=== PATIENT | male | born 1980 | race Caucasian/White ===

== ENCOUNTER 2016-08-08 10:56 | Emergency (ER) | payer OTHER ==
[~2016-08-08] VITALS: Ht 167.6 cm; Wt 62.6 kg
[2016-08-08 14:14] VITALS: BP 110/72
== END 2016-08-08 14:14 | disposition home or self-care (01) ==
LOC: ED 10:56
DX: L89.324 Pressure ulcer of left buttock, stage 4 (principal); L89.314 Pressure ulcer of right buttock, stage 4; M86.68 Other chronic osteomyelitis, other site
CPT/HCPCS: J0295; J3490

== ENCOUNTER 2016-08-11 15:36 | Emergency (ER) | payer OTHER ==
[2016-08-11 21:48] LABS: BASOPHIL % 0.3 % (0-2)
[2016-08-11 21:54] VITALS: BP 122/67
[2016-08-11 21:57] LABS: CALCIUM 8.6 mg/dL (8.5-10.1); CARBON DIOXIDE 27.8 mmol/L (21-32); CHLORIDE SERUM 98 mmol/L (98-107); GFR1 > 60 mL/min; GLUCOSE SERUM 137 mg/dL (74-106); POTASSIUM SERUM 3.1 mmol/L (3.5-5.1); SODIUM SERUM 135 mmol/L (136-145)
[2016-08-11 22:00] LABS: PLATELET COUNT 867 x10^3mcL (130-400); RED CELL DISTRIBUTION WIDTH 15.7 % (11.5-14.5)
== END 2016-08-11 21:54 | disposition home or self-care (01) ==
LOC: ED 15:36
PROVIDERS: Emergency Medicine
DX: L89.314 Pressure ulcer of right buttock, stage 4 (principal)
CPT/HCPCS: 83880; J0290

== ENCOUNTER 2017-02-09 17:48 | Emergency (ER) | payer MEDICAID ==
[2017-02-09 22:16] LABS: BASOPHIL % 0.3 % (0-2)
[2017-02-09 22:19] LABS: CALCIUM 8.6 mg/dL (8.5-10.1); CARBON DIOXIDE 30.4 mmol/L (21-32); CHLORIDE SERUM 102 mmol/L (98-107); CREATININE SERUM 1.2 mg/dL (0.7-1.3); GFR1 > 60 mL/min; GLUCOSE SERUM 128 mg/dL (74-106); POTASSIUM SERUM 3.5 mmol/L (3.5-5.1); SODIUM SERUM 136 mmol/L (136-145)
[2017-02-09 22:20] LABS: PLATELET COUNT 511 x10^3mcL (130-400); RED CELL DISTRIBUTION WIDTH 19.5 % (11.5-14.5)
[2017-02-09 22:24] LABS: ALKALINE PHOSPHATASE 150 U/L (46-116); ALT/SGPT 46 U/L (16-63); AST/SGOT 36 U/L (15-37); BILIRUBIN TOTAL 0.3 mg/dL (0.20-1.00); TOTAL PROTEIN, SERUM 7.8 g/dL (6.4-8.2)
[2017-02-09 22:26] LABS: ALBUMIN 1.9 g/dL (3.4-5.0)
[2017-02-09 23:13] VITALS: BP 117/66
== END 2017-02-09 23:13 | disposition home or self-care (01) ==
LOC: ED 17:48
PROVIDERS: Emergency Medicine
DX: M54.5 Low back pain (principal); L89.159 Pressure ulcer of sacral region, unspecified stage; G82.20 Paraplegia, unspecified
CPT/HCPCS: 36415

== ENCOUNTER 2017-09-09 18:05 | Inpatient (IN) | payer OTHER ==
[~2017-09-09] VITALS: Ht 170.2 cm; Wt 64.8 kg
[2017-09-09 18:23] VITALS: Ht 170.2 cm; Wt 64.8 kg
[2017-09-09 21:16] LABS: BASOPHIL % 0.3 % (0-2); PLATELET COUNT 390 x10^3mcL (130-400)
[2017-09-09 21:18] LABS: RED CELL DISTRIBUTION WIDTH 15.6 % (11.5-14.5)
[2017-09-09 21:20] LABS: CALCIUM 7.3 mg/dL (8.5-10.1); CARBON DIOXIDE 26.2 mmol/L (21-32); CHLORIDE SERUM 102 mmol/L (98-107); CREATININE SERUM 0.8 mg/dL (0.7-1.3); GFR1 > 60 mL/min; GLUCOSE SERUM 101 mg/dL (74-106); POTASSIUM SERUM 3.4 mmol/L (3.5-5.1); SODIUM SERUM 136 mmol/L (136-145)
[2017-09-09 21:23] LABS: ALKALINE PHOSPHATASE 146 U/L (46-116); ALT/SGPT 34 U/L (16-63); AST/SGOT 23 U/L (15-37); BILIRUBIN TOTAL 0.5 mg/dL (0.20-1.00); TOTAL PROTEIN, SERUM 6.9 g/dL (6.4-8.2)
[2017-09-09 22:13] LABS: microscopic required? YES; urine erythrocyte 1+ (NEGATIVE)
[2017-09-09 23:07] VITALS: BP 86/49
[2017-09-10] VITALS (11 sets, daily range): BP systolic 68–112; BP diastolic 38–71
[2017-09-10 00:32] LABS: CHOLESTEROL/HDL RATIO 7.5
[2017-09-10 00:33] LABS: FREE T4 0.89 ng/dL (0.76-1.46)
[2017-09-10 00:35] LABS: FREE THYROXINE INDEX 1.4 ug/dL (1.4-4.5); T4(THYROXINE) 3.8 ug/dL (4.7-13.3)
[2017-09-10 00:47] LABS: T3 TOTAL 0.78 ng/mL
[2017-09-10 04:14] LABS: AMPHETAMINE QUAL UR POSITIVE (See below)
[2017-09-10 05:22] LABS: BASOPHIL % 0.4 % (0-2); PLATELET COUNT 397 x10^3mcL (130-400)
[2017-09-10 05:23] LABS: RED CELL DISTRIBUTION WIDTH 15.9 % (11.5-14.5)
[2017-09-10 05:42] LABS: CALCIUM 7.6 mg/dL (8.5-10.1); CARBON DIOXIDE 24.4 mmol/L (21-32); CHLORIDE SERUM 107 mmol/L (98-107); CREATININE SERUM 0.7 mg/dL (0.7-1.3); GFR1 > 60 mL/min; GLUCOSE SERUM 111 mg/dL (74-106); MAGNESIUM 2.3 mg/dL (1.8-2.4); POTASSIUM SERUM 3.6 mmol/L (3.5-5.1); SODIUM SERUM 142 mmol/L (136-145)
[2017-09-11 05:01] LABS: BASOPHIL % 0.5 % (0-2); PLATELET COUNT 339 x10^3mcL (130-400)
[2017-09-11 05:04] LABS: RED CELL DISTRIBUTION WIDTH 16.1 % (11.5-14.5)
[2017-09-11 05:21] LABS: CALCIUM 7.9 mg/dL (8.5-10.1); CHLORIDE SERUM 110 mmol/L (98-107); CREATININE SERUM 0.6 mg/dL (0.7-1.3); GFR1 > 60 mL/min; GLUCOSE SERUM 190 mg/dL (74-106); MAGNESIUM 2.2 mg/dL (1.8-2.4); PHOSPHOROUS 2.5 mg/dL (2.5-4.9); POTASSIUM SERUM 3.5 mmol/L (3.5-5.1); SODIUM SERUM 144 mmol/L (136-145)
[2017-09-11 07:58] VITALS: BP 113/75
[2017-09-11 12:17] VITALS: BP 114/63
[2017-09-11 17:40] VITALS: BP 101/52
[2017-09-11 20:53] VITALS: BP 89/68
[2017-09-12 05:24] VITALS: BP 100/69
[2017-09-12 06:39] LABS: BASOPHIL % 0.4 % (0-2)
[2017-09-12 06:58] LABS: CALCIUM 7.8 mg/dL (8.5-10.1); CARBON DIOXIDE 25.9 mmol/L (21-32); CHLORIDE SERUM 110 mmol/L (98-107); CREATININE SERUM 0.8 mg/dL (0.7-1.3); GFR1 > 60 mL/min; GLUCOSE SERUM 181 mg/dL (74-106); POTASSIUM SERUM 3.5 mmol/L (3.5-5.1); SODIUM SERUM 144 mmol/L (136-145)
[2017-09-12 07:38] LABS: PLATELET COUNT 434 x10^3mcL (130-400); RED CELL DISTRIBUTION WIDTH 16.4 % (11.5-14.5)
[2017-09-12 09:21] VITALS: BP 100/60
[2017-09-12] MEDS ORDERED: AUGMENTIN 875-1 EACH PO (13:29)
[2017-09-12] MEDS ORDERED: LEVAQUIN750 MG PO (13:29)
[2017-09-12 13:35] VITALS: BP 105/59
[2017-09-12 13:39] VITALS: BP 105/59
== END 2017-09-12 14:44 | disposition home health service (06) | DRG 720 ==
LOC: ED 18:05 → DU 21:57 → IC 21:57 → DU 22:30 → IC 09-10 02:07 → DU 09-11 17:36
PROVIDERS: Emergency Medicine; Family Medicine; Surgery
PROC: 0JBM0ZZ Excision of Left Upper Leg Subcutaneous Tissue and Fascia, Open Approach (ICD-10-PCS; principal; 2017-09-11 09:00)
DX: A41.9 Sepsis, unspecified organism (principal); N17.0 Acute kidney failure with tubular necrosis; R65.21 Severe sepsis with septic shock; E43 Unspecified severe protein-calorie malnutrition; L89.229 Pressure ulcer of left hip, unspecified stage; G82.21 Paraplegia, complete; D64.9 Anemia, unspecified; B35.1 Tinea unguium; N39.0 Urinary tract infection, site not specified; R31.9 Hematuria, unspecified; R80.9 Proteinuria, unspecified; F17.210 Nicotine dependence, cigarettes, uncomplicated; M62.50 Muscle wasting and atrophy, not elsewhere classified, unspecified site; B35.3 Tinea pedis; L98.429 Non-pressure chronic ulcer of back with unspecified severity; E87.6 Hypokalemia; Z93.3 Colostomy status; Z68.20 Body mass index [BMI] 20.0-20.9, adult; Z99.3 Dependence on wheelchair
CPT/HCPCS: 83880; 84439; J0696; J1720; J1885; J1956; J2250; J2543; J3010; J3475; J3490; J7030; J7040; Q0092

== ENCOUNTER 2018-02-24 22:20 | Inpatient (IN) | payer OTHER ==
[~2018-02-24] VITALS: Ht 167.6 cm; Wt 57.2 kg
[~2018-02-24 22:20] MED LIST: AUGMENTIN 875-1 EACH PO; LEVAQUIN750 MG PO
[2018-02-24 23:16] LABS: CALCIUM 7.9 mg/dL (8.5-10.1); CARBON DIOXIDE 22.1 mmol/L (21-32); CHLORIDE SERUM 98 mmol/L (98-107); CREATININE SERUM 1.1 mg/dL (0.7-1.3); GFR1 > 60 mL/min; GLUCOSE SERUM 95 mg/dL (74-106); POTASSIUM SERUM 3.9 mmol/L (3.5-5.1); SODIUM SERUM 132 mmol/L (136-145)
[2018-02-24 23:20] LABS: ALKALINE PHOSPHATASE 332 U/L (46-116); ALT/SGPT 30 U/L (16-63); AST/SGOT 27 U/L (15-37); TOTAL PROTEIN, SERUM 7.3 g/dL (6.4-8.2)
[2018-02-24 23:22] LABS: ALBUMIN 1.8 g/dL (3.4-5.0)
[2018-02-24 23:27] LABS: BASOPHIL % 0 % (0-2); PLATELET COUNT 411 x10^3mcL (130-400); RED CELL DISTRIBUTION WIDTH 18.1 % (11.5-14.5)
[2018-02-25 01:55] LABS: T3 TOTAL 0.58 ng/mL
[2018-02-25 02:03] LABS: FREE THYROXINE INDEX 1.4 ug/dL (1.4-4.5); T4(THYROXINE) 3.3 ug/dL (4.7-13.3)
[2018-02-25 02:14] LABS: CHOLESTEROL/HDL RATIO 7.2; MAGNESIUM 1.1 mg/dL (1.8-2.4); PHOSPHOROUS 1.4 mg/dL (2.5-4.9)
[2018-02-25 04:39] VITALS: BP 72/43
[2018-02-25 05:02] LABS: CALCIUM 7.5 mg/dL (8.5-10.1); CARBON DIOXIDE 22.1 mmol/L (21-32); CHLORIDE SERUM 104 mmol/L (98-107); CREATININE SERUM 1.3 mg/dL (0.7-1.3); GFR1 > 60 mL/min; GLUCOSE SERUM 106 mg/dL (74-106); MAGNESIUM 1.3 mg/dL (1.8-2.4); PHOSPHOROUS 2.1 mg/dL (2.5-4.9); POTASSIUM SERUM 3.6 mmol/L (3.5-5.1); SODIUM SERUM 136 mmol/L (136-145)
[2018-02-25 05:33] LABS: PLATELET COUNT 473 x10^3mcL (130-400)
[2018-02-25 05:38] VITALS: BP 82/50
[2018-02-25 05:48] LABS: BAND NEUTROPHIL 17 % (0-10); BASOPHIL 0 % (0-2); MONOCYTE 1 % (0-7); SEGMENTED NEUTROPHILS 81 % (37-75)
[2018-02-25 05:50] LABS: rbc morphology (normal/abnorm) NORMAL (NORMAL)
[2018-02-25 05:51] LABS: PLATELET MORPHOLOGY PLATELETS INCREASED
[2018-02-25 08:00] VITALS: BP 110/56
[2018-02-25 16:00] VITALS: BP 77/33
[2018-02-25 19:23] VITALS: BP 84/38
[2018-02-26] VITALS (7 sets, daily range): BP systolic 79–133; BP diastolic 43–91
[2018-02-26 05:34] LABS: PLATELET COUNT 420 x10^3mcL (130-400); RED CELL DISTRIBUTION WIDTH 18.9 % (11.5-14.5)
[2018-02-26 05:48] LABS: CALCIUM 7.5 mg/dL (8.5-10.1); CHLORIDE SERUM 109 mmol/L (98-107); CREATININE SERUM 0.7 mg/dL (0.7-1.3); GFR1 > 60 mL/min; GLUCOSE SERUM 99 mg/dL (74-106); MAGNESIUM 2.2 mg/dL (1.8-2.4); PHOSPHOROUS 2.7 mg/dL (2.5-4.9); POTASSIUM SERUM 4.1 mmol/L (3.5-5.1); SODIUM SERUM 140 mmol/L (136-145)
[2018-02-26 05:52] LABS: BAND NEUTROPHIL 2 % (0-10); MONOCYTE 5 % (0-7); SEGMENTED NEUTROPHILS 86 % (37-75)
[2018-02-26 05:59] LABS: PLATELET MORPHOLOGY PLATELETS NORMAL; rbc morphology (normal/abnorm) ABNORMAL (NORMAL)
[2018-02-26 10:38] LABS: UA SPECIFIC GRAVITY 1.025 (1.005-1.035); microscopic required? YES; urine erythrocyte 3+ (NEGATIVE)
[2018-02-26 11:10] LABS: AMPHETAMINE QUAL UR POSITIVE (See below)
[2018-02-27 00:18] VITALS: Ht 167.6 cm; Wt 57.2 kg
[2018-02-27 05:51] VITALS: BP 93/49
[2018-02-27 06:20] LABS: CALCIUM 7.5 mg/dL (8.5-10.1); CARBON DIOXIDE 26.2 mmol/L (21-32); CHLORIDE SERUM 111 mmol/L (98-107); CREATININE SERUM 0.7 mg/dL (0.7-1.3); GFR1 > 60 mL/min; GLUCOSE SERUM 107 mg/dL (74-106); POTASSIUM SERUM 3.8 mmol/L (3.5-5.1); SODIUM SERUM 143 mmol/L (136-145)
[2018-02-27 06:22] LABS: BASOPHIL % 0.5 % (0-2)
[2018-02-27 06:45] LABS: PLATELET COUNT 481 x10^3mcL (130-400); RED CELL DISTRIBUTION WIDTH 18.5 % (11.5-14.5)
[2018-02-27 08:06] VITALS: BP 89/57
[2018-02-27 13:08] VITALS: BP 93/53
[2018-02-27 17:19] VITALS: BP 94/52
[2018-02-27 21:16] VITALS: BP 95/63
[2018-02-28 06:24] VITALS: BP 114/71
[2018-02-28 06:33] LABS: BASOPHIL % 0.4 % (0-2)
[2018-02-28 07:13] LABS: PLATELET COUNT 429 x10^3mcL (130-400); RED CELL DISTRIBUTION WIDTH 19.2 % (11.5-14.5)
[2018-02-28 07:25] LABS: CALCIUM 7.9 mg/dL (8.5-10.1); CARBON DIOXIDE 26.3 mmol/L (21-32); CHLORIDE SERUM 110 mmol/L (98-107); CREATININE SERUM 0.7 mg/dL (0.7-1.3); GFR1 > 60 mL/min; GLUCOSE SERUM 91 mg/dL (74-106); POTASSIUM SERUM 3.8 mmol/L (3.5-5.1); SODIUM SERUM 143 mmol/L (136-145)
[2018-02-28 10:11] VITALS: BP 98/57
[2018-02-28 13:00] VITALS: BP 116/64
[2018-02-28 18:35] VITALS: BP 105/65
[2018-02-28 20:50] VITALS: BP 108/64
[2018-03-01 05:32] VITALS: BP 95/57
[2018-03-01 06:33] LABS: BASOPHIL % 0.6 % (0-2)
[2018-03-01 06:47] LABS: PLATELET COUNT 465 x10^3mcL (130-400); RED CELL DISTRIBUTION WIDTH 18.3 % (11.5-14.5)
[2018-03-01 07:09] LABS: CALCIUM 7.9 mg/dL (8.5-10.1); CARBON DIOXIDE 27.2 mmol/L (21-32); CHLORIDE SERUM 107 mmol/L (98-107); CREATININE SERUM 0.8 mg/dL (0.7-1.3); GFR1 > 60 mL/min; GLUCOSE SERUM 83 mg/dL (74-106); POTASSIUM SERUM 3.8 mmol/L (3.5-5.1); SODIUM SERUM 139 mmol/L (136-145)
[2018-03-01 09:31] VITALS: BP 129/73
[2018-03-01 13:16] VITALS: BP 97/49
[2018-03-01 16:53] VITALS: BP 97/53
[2018-03-01 21:25] VITALS: BP 103/62
[2018-03-02 06:13] VITALS: BP 98/58
[2018-03-02 06:35] LABS: BASOPHIL % 0.7 % (0-2)
[2018-03-02 06:57] LABS: CARBON DIOXIDE 28.4 mmol/L (21-32); CHLORIDE SERUM 108 mmol/L (98-107); CREATININE SERUM 1.4 mg/dL (0.7-1.3); GFR1 > 60 mL/min; GLUCOSE SERUM 94 mg/dL (74-106); POTASSIUM SERUM 4.1 mmol/L (3.5-5.1); SODIUM SERUM 142 mmol/L (136-145)
[2018-03-02 08:02] LABS: PLATELET COUNT 561 x10^3mcL (130-400); RED CELL DISTRIBUTION WIDTH 18.2 % (11.5-14.5)
[2018-03-02 09:53] VITALS: BP 89/54
[2018-03-02 12:14] VITALS: BP 99/57
[2018-03-02 16:42] VITALS: BP 92/50
[2018-03-02 21:08] VITALS: BP 95/46
[2018-03-03 05:22] VITALS: BP 96/58
[2018-03-03 06:15] LABS: CALCIUM 8.2 mg/dL (8.5-10.1); CARBON DIOXIDE 26.2 mmol/L (21-32); CHLORIDE SERUM 108 mmol/L (98-107); CREATININE SERUM 0.7 mg/dL (0.7-1.3); GFR1 > 60 mL/min; GLUCOSE SERUM 83 mg/dL (74-106); SODIUM SERUM 141 mmol/L (136-145)
[2018-03-03 07:19] LABS: BASOPHIL % 0.7 % (0-2)
[2018-03-03 07:20] LABS: PLATELET COUNT 497 x10^3mcL (130-400); RED CELL DISTRIBUTION WIDTH 18.2 % (11.5-14.5)
[2018-03-03 09:07] VITALS: BP 94/58
[2018-03-03 13:03] VITALS: BP 89/51
[2018-03-03 16:35] VITALS: BP 107/55
[2018-03-03 19:45] VITALS: BP 94/53
[2018-03-04 05:38] VITALS: BP 88/61
[2018-03-04 06:25] LABS: BASOPHIL % 0.5 % (0-2)
[2018-03-04 06:47] LABS: CALCIUM 7.9 mg/dL (8.5-10.1); CARBON DIOXIDE 27.6 mmol/L (21-32); CHLORIDE SERUM 106 mmol/L (98-107); CREATININE SERUM 0.7 mg/dL (0.7-1.3); GFR1 > 60 mL/min; GLUCOSE SERUM 95 mg/dL (74-106); POTASSIUM SERUM 3.5 mmol/L (3.5-5.1); SODIUM SERUM 137 mmol/L (136-145)
[2018-03-04 07:08] LABS: PLATELET COUNT 568 x10^3mcL (130-400); RED CELL DISTRIBUTION WIDTH 18.6 % (11.5-14.5)
[2018-03-04 08:27] VITALS: BP 96/40
== END 2018-03-04 10:30 | disposition left against medical advice (07) | DRG 720 ==
LOC: ED 22:20 → IC 02-25 01:01 → MU 02-25 01:01 → IC 02-25 02:09 → DU 02-26 22:40 → MU 03-03 17:38
PROVIDERS: Emergency Medicine; Family Medicine; ADMIT Internal Medicine
DX: A41.89 Other specified sepsis (principal); R65.21 Severe sepsis with septic shock; E43 Unspecified severe protein-calorie malnutrition; L89.154 Pressure ulcer of sacral region, stage 4; D68.69 Other thrombophilia; E11.65 Type 2 diabetes mellitus with hyperglycemia; E83.39 Other disorders of phosphorus metabolism; D89.9 Disorder involving the immune mechanism, unspecified; L89.224 Pressure ulcer of left hip, stage 4; E83.42 Hypomagnesemia; G82.21 Paraplegia, complete; N39.0 Urinary tract infection, site not specified; R31.9 Hematuria, unspecified; E83.51 Hypocalcemia; J44.9 Chronic obstructive pulmonary disease, unspecified; Z53.21 Procedure and treatment not carried out due to patient leaving prior to being seen by health care provider; B96.4 Proteus (mirabilis) (morganii) as the cause of diseases classified elsewhere; B95.61 Methicillin susceptible Staphylococcus aureus infection as the cause of diseases classified elsewhere; F12.10 Cannabis abuse, uncomplicated; F15.10 Other stimulant abuse, uncomplicated; E87.1 Hypo-osmolality and hyponatremia; F17.210 Nicotine dependence, cigarettes, uncomplicated; Z93.3 Colostomy status; Z99.3 Dependence on wheelchair; Z68.20 Body mass index [BMI] 20.0-20.9, adult; Z22.322 Carrier or suspected carrier of Methicillin resistant Staphylococcus aureus; Z23 Encounter for immunization; Z79.899 Other long term (current) drug therapy
CPT/HCPCS: 82962; 83880; 84439; 90658; J0696; J0713; J1335; J1956; J2405; J2543; J3370; J3475; J7030; J7050; J7060; Q0092; Q9967

== ENCOUNTER 2018-07-17 00:33 | Inpatient (IN) | payer OTHER ==
[~2018-07-17] VITALS: Ht 167.6 cm; Wt 61.7 kg
[2018-07-17 00:39] VITALS: Ht 167.6 cm; Wt 61.7 kg
--- NOTE | 2018-07-17 00:59 | NUR ---
PT C/O HAVING BOADY PAIN AND NIPPLE PAIN SINCE THE June. PT WAS ADMIT TO [facility] AND DISCHARGED . PT STS THAT HE HAS BEEN HAVING A TEMP OF 102. PT GIVEN VANCO FROM LLU. PT HAS BEEN HAVING NAUSEA AND VOMITING. DIARRHEA FOR ONE WEEK. PT HAS STAGE 4 PRESSURE ULCER IN RIGHT BUTTOCKS FOR 6-8 MONTHS. PT HAS A CATHETER LEG BACK. PT STS THAT HIS URINE SEEMS DARKER THAN NORMAL. PT STS WOUNDS HAVE BEEN CHECK AND DRAINING MORE THAN USUAL. DR. KAMINSKI AT BEDSIDE FOR MSE. VSS. TEMP NOTED. WILL CONTINUE TO MONITOR.
--- NOTE | 2018-07-17 01:26 | NUR ---
EKG IN PROGRESS.
[2018-07-17 01:29] LABS: RED CELL DISTRIBUTION WIDTH 18.5 % (11.5-14.5)
[2018-07-17 01:31] LABS: PLATELET COUNT 791 x10^3mcL (130-400)
[2018-07-17 01:41] LABS: MONOCYTE 3 % (0-7); SEGMENTED NEUTROPHILS 87 % (37-75)
[2018-07-17 01:44] LABS: CALCIUM 7.6 mg/dL (8.5-10.1); CARBON DIOXIDE 25.6 mmol/L (21-32); CHLORIDE SERUM 95 mmol/L (98-107); GFR1 > 60 mL/min; GLUCOSE SERUM 131 mg/dL (74-106); PLATELET MORPHOLOGY PLATELETS INCREASED; POTASSIUM SERUM 4.5 mmol/L (3.5-5.1); SODIUM SERUM 130 mmol/L (136-145); rbc morphology (normal/abnorm) ABNORMAL (NORMAL); target cell (codocyte) 1+; tear drop cell (dacryocyte) 1+
[2018-07-17 02:28] LABS: ALKALINE PHOSPHATASE 409 U/L (46-116); ALT/SGPT 62 U/L (16-63); AST/SGOT 60 U/L (15-37); BILIRUBIN TOTAL 0.5 mg/dL (0.20-1.00); TOTAL PROTEIN, SERUM 6.3 g/dL (6.4-8.2)
[2018-07-17 02:33] LABS: ALBUMIN 1.4 g/dL (3.4-5.0)
[2018-07-17 03:05] LABS: microscopic required? YES; urine erythrocyte TRACE (NEGATIVE)
--- NOTE | 2018-07-17 03:09 | NUR ---
PT TURNED TO RIGHT SIDE TO NOT PUT PRESSURE TO LEFT THIGH WOUND. PT IN POSITION OF COMFORT. RESP E/U. VSS. WILL CONTINUE TO MONITOR. PT IS ALERT AND ORIENTED, SPEAKING IN CLEAR AND FULL SENTENCES.
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
[2018-07-17 04:31] LABS: MAGNESIUM 1.8 mg/dL (1.8-2.4)
--- NOTE | 2018-07-17 04:33 | NUR ---
WEED CONTAINER IN PT WHEELCHAIR PD NOTIFIED AND STS THAT DAY SHIFT PD WILL COME TO TOWBOAT PILOT METH CONTAINER IN RADIO ROOM. PT WAS WILLING TO GIVE DRUGS TO TRASH THEM. CONTANIER HAD "METH AND COCAINE" PER PT.
--- NOTE | 2018-07-17 04:35 | NUR ---
RECEIVED PT FROM ED. PT AOX4. DENIES FAYE/DIZZINESS. MED SURG PT. DENIES CP/PRESSURE. DENIES SOB/DIFFICULTY BREATHING, ON RA. COLOSTOMY NOTED TO LLQ, NO OUTPUT NOTED. CROCKER CATH IN PLACE, STRAW COLORED URINE NOTED. PARAPLEGIC, USES WHEEL CHAIR. OPEN WOUND TO R/L BUTTOCKS. IV TO LAC, LFA, INTACT AND PATENT. BED IN LOWEST POSITION. CALL LIGHT WITHIN REACH. WILL CONTINUE TO MONITOR.
[2018-07-17 05:16] VITALS: BP 91/44
--- NOTE | 2018-07-17 05:55 | NUR ---
PT BP 91/[address] ALLRED MADE AWARE.
[2018-07-17 07:07] LABS: CALCIUM 7.6 mg/dL (8.5-10.1); CHLORIDE SERUM 102 mmol/L (98-107); CREATININE SERUM 0.8 mg/dL (0.7-1.3); GFR1 > 60 mL/min; GLUCOSE SERUM 115 mg/dL (74-106); POTASSIUM SERUM 3.2 mmol/L (3.5-5.1); SODIUM SERUM 136 mmol/L (136-145)
--- NOTE | 2018-07-17 07:10 | NUR ---
RECIEVED PT FROM ENCEPHALOGRAPHER NURSE. PT IN BED SLEEPING, AROUSABLE, RESP EVEN AND UNLABORED ON RA. NO ACUTE DISTRESS NOTED. IV TO LFA AND LAC W/ NO ERYTHEMA OR EDEMA, PATENT AND INTACT. CROCKER IN PLACE DRAINING STRAW COLORED URINE TO GRAVITY. COLOSTOMY TO LLQ W/ NO OUTPUT AT THIS TIME. BED IN LOWEST POSITION AND CALL LIGHT WITHIN REACH. WILL CONTINUE TO MONITOR.
[2018-07-17 07:52] LABS: PLATELET COUNT 636 x10^3mcL (130-400); RED CELL DISTRIBUTION WIDTH 18.3 % (11.5-14.5)
--- NOTE | 2018-07-17 08:52 | NUR ---
TANNER CARTOON DESIGNER KARL#[id number] CAME TO PICKUP THE SMALL BLK CONTAINER.
[2018-07-17 08:58] LABS: MONOCYTE 4 % (0-7); SEGMENTED NEUTROPHILS 87 % (37-75)
[2018-07-17 08:59] LABS: rbc morphology (normal/abnorm) ABNORMAL (NORMAL); target cell (codocyte) 1+
[2018-07-17 09:00] VITALS: BP 80/50
[2018-07-17 09:00] LABS: PLATELET MORPHOLOGY PLATELETS INCREASED; tear drop cell (dacryocyte) 1+
--- NOTE | 2018-07-17 12:30 | NUR ---
PT IN BED HAVING LUNCH. AOX4. NO ACUTE DISTRESS NOTED. DENIES PAIN AT THIS TIME. BED IN LOWEST POSITION AND CALL LIGHT WITHIN REACH. WILL CONTINUE TO MONITOR.
--- NOTE | 2018-07-17 16:40 | NUR ---
WOUND OBSERVED AT THIS TIME. PRESSURE ULCER TO R BUTTOCKS W/ NO DRAINAGE OR DISCHARGE, SURROUNDING TISSUE PINK. PRESSURE ULCER TO L BUTTOCKS W/ PACKING IN PLACE, MODERATE AMOUNT OF SEROUS SANGUINOUS FLUID NOTED. PT DENIES PAIN TO BOTH SITES. WOUND CARE DONE. OPTIFOAM IN PLACE SECURED BY STRATSORB DRESSING. WILL CONTINUE TO MONITOR.
[2018-07-17 17:31] LABS: AMPHETAMINE QUAL UR POSITIVE (See below)
[2018-07-17 17:51] VITALS: BP 157/98; BP 75/43
--- NOTE | 2018-07-17 19:10 | NUR ---
RECEIVED PT FROM PREVIOUS SHIFT NURSE. PT AOX4. DENIES FAYE/DIZZINESS. MED SURG PT. DENIES CP/PRESSURE. DENIES SOB/DIFFICULTY BREATHING, ON RA. COLOSTOMY TO LLQ. GEN WEAKNESS. WHEELCHAIR AT BEDSIDE. R. BUTTOCKS WOUND DSG CDI. L. BUTTOCKS WOUND DSG CDI. IV TO LAC, LFA INTACT AND PATENT. BED IN LOWEST POSITION. CALL LIGHT WITHIN REACH. WILL CONTINUE TO MONITOR.
--- NOTE | 2018-07-17 19:23 | NUR ---
PT DRESSING CAME OFF DURING REPOSTIONING. WOUND CARE DONE, OPTIFOAM AND SERATOFOAM DRESSING APPLIED AND SECURED. PT AOX4. RESP EVENA DN UN LABORED ON RA. IV SITE W/ NO SIGNS OF INFILTRATION, IVF INUFSING WELL. COLOSTOMY TO LLQ CLEAN AND INTACT. CROCKER DRAINING STRAW COLORED URINE TO GRAVITY. BED IN LOW AND CALL LIGHT WITHIN REACH. WILL ENDORSE TO ONCOMING NURSE.
[2018-07-17 21:09] VITALS: BP 94/47
--- NOTE | 2018-07-17 22:09 | NUR ---
WOUND VAC APPLIED TO L. HIP/BUTTOCK WOUND AT 125 mmHg. DRAINING SEROUS DRAINAGE.
--- NOTE | 2018-07-18 01:45 | NUR ---
PT RESTING IN BED. RR EVEN AND UNLABORED. NO ACUTE DISTRESS NOTED. CALL LIGHT WITHIN REACH. BED IN LOWEST POSITION. WILL CONTINUE TO MONITOR.
[2018-07-18 04:25] VITALS: BP 83/44
[2018-07-18 06:09] LABS: BASOPHIL % 0.1 % (0-2)
[2018-07-18 06:56] LABS: CALCIUM 7.5 mg/dL (8.5-10.1); CARBON DIOXIDE 21.5 mmol/L (21-32); CHLORIDE SERUM 106 mmol/L (98-107); CREATININE SERUM 0.6 mg/dL (0.7-1.3); GFR1 > 60 mL/min; GLUCOSE SERUM 117 mg/dL (74-106); MAGNESIUM 1.6 mg/dL (1.8-2.4); PHOSPHOROUS 2.8 mg/dL (2.5-4.9); POTASSIUM SERUM 3.9 mmol/L (3.5-5.1); SODIUM SERUM 138 mmol/L (136-145)
--- NOTE | 2018-07-18 07:07 | NUR ---
RECEIVED PT FROM MANAGING MEMBER NURSE. PT RESTING IN BED, AOX4, RESP EVEN AND UNLABORED ON RA. DENIES PAIN AT THIS TIME. IV TO LAC AND LFA W/ NO ERTHEMA OR EDEMA, IVF INFUSING WELL. DRESSING TO LEFT AND RIGHT BUTTOCKS CDI. WOUND VAC IN PLACE DRAINING SEROUS DRAINAGE. COLOSTOMY TO LLQ CLEAN AND INTACT. CROCKER IN PLACE DRAINING STRAW COLORED URINE. BED IN LOWEST POSITION AND CALL LIGHT WITHIN REACH. WILL CONTINUE TO MONITOR.
[2018-07-18 07:10] LABS: RED CELL DISTRIBUTION WIDTH 18.3 % (11.5-14.5)
[2018-07-18 07:14] LABS: PLATELET COUNT 543 x10^3mcL (130-400)
[2018-07-18 09:30] VITALS: BP 86/45
--- NOTE | 2018-07-18 11:10 | NUR ---
LEAK TO WOUND VAC NOTED. DRESSING REINFORCED, SUCTION MAINTAINED AT 125 MMHG. DRESSING CDI. WILL CONTINUE TO MONITOR.
--- NOTE | 2018-07-18 12:11 | NUR ---
PT SLEEPING IN BED, AROUSABLE, RESP EVEN AND UNLABORED ON RA. NO ACUTE DSTRESS NOTED. BED IN LOWEST POSITION AND CALL LIGHT WITHIN REACH. WILL CONTINUE TO MONITOR.
[2018-07-18 12:40] LABS: IRON 9 ug/dL (65-170); TOTAL IRON BINDING CAPACITY 84 ug/dL (250-450)
--- NOTE | 2018-07-18 18:10 | NUR ---
WOUND CARE DONE. OPTIFOAM AND STRATASORB DRESSING IN PLACE. WOUND VAC TO LEFT BUTTOCKS DRAINING SEROUS FLUID AT 125 MMHG, DRESSING CDI. PT AOX4, RESP EVEN AND UNLABORED ON RA. DENIES PAIN. COLOSTOMY BAG CLEAN AND INTACT. CROCKER IN PLACE DRAINING STRAW COLORED URINE. BED IN LOWEST POSITION AND CALL LIGHT WITHIN REACH. WILL ENDORSE TO ONCOMING NURSE.
[2018-07-18 18:30] VITALS: BP 71/35
--- NOTE | 2018-07-18 19:10 | NUR ---
RECEIVED PT FROM PREVIOUS SHIFT NURSE. PT AOX4. DENIES FAYE/DIZZINESS. MED SURG PT. DENIES CP/PRESSURE. DENIES SOB/DIFFICULTY BREATHING, ON RA. CROCKER CATH IN PLACE, YELLOW OUTPUT NOTED. R. BUTTOCK WOUND DSG CDI, L. BUTTOCK WOUND WITH WOUND VAC IN PLACE. IV TO LFA, LAC INTACT AND PATENT. BED IN LOWEST POSITION. CALL LIGHT WITHIN REACH. WILL CONTINUE TO MONITOR.
[2018-07-18 19:24] VITALS: BP 78/41
--- NOTE | 2018-07-18 21:45 | NUR ---
TELE #16 PLACED ON PT, READING NSR, HR 87.
--- NOTE | 2018-07-18 22:51 | NUR ---
BOLUS COMPLETE. BP 77/45 MAP 43. PT ASYMPTOMATIC. STATES HE DOES NOT WANT HIS BP CHECKED ANYMORE. DR. SMART NOTIFIED. WILL CONTINUE TO MONITOR.
--- NOTE | 2018-07-19 03:30 | NUR ---
PT RESTING IN BED. RR EVEN AND UNLABORED. IN NO ACUTE DISTRESS. BED IN LOWEST POSITION. CALL LIGHT WITHIN REACH. WILL CONTINUE TO MONITOR.
[2018-07-19 04:28] VITALS: BP 89/50
--- NOTE | 2018-07-19 06:32 | NUR ---
50 ML OUTPUT FROM WOUND VAC.
[2018-07-19 06:51] LABS: BASOPHIL % 0.3 % (0-2)
[2018-07-19 07:07] LABS: CALCIUM 7.3 mg/dL (8.5-10.1); CARBON DIOXIDE 28.6 mmol/L (21-32); CHLORIDE SERUM 109 mmol/L (98-107); CREATININE SERUM 0.7 mg/dL (0.7-1.3); GFR1 > 60 mL/min; GLUCOSE SERUM 150 mg/dL (74-106); MAGNESIUM 1.8 mg/dL (1.8-2.4); PHOSPHOROUS 2.9 mg/dL (2.5-4.9); POTASSIUM SERUM 3.1 mmol/L (3.5-5.1); SODIUM SERUM 143 mmol/L (136-145)
--- NOTE | 2018-07-19 07:30 | NUR ---
AAO X4.PT PARAPLEGIC.DENIES ANY PAIN/DISCOMFORT.LUNGS CLEAR.ON SR ON THE MONITOR.IVF NS GOING AT 75 ML/HR INFUSING WELL.COLOSTOMY TO LLQ.ALSO CROCKER DRAINING TO GRAVITY YELLOW IN COLOR.L BUTTOCK WITH WOUND VAC DRAINING SEROUSANGUINOUS FLUID.CALL LIGHT WITHIN REACH.INSTRUCTED TO CALL FOR ANY PAIN/DISCOMFORT.WILL CONTINUE TO MONITOR PT.
[2018-07-19 07:35] LABS: PLATELET COUNT 621 x10^3mcL (130-400)
--- NOTE | 2018-07-19 13:30 | NUR ---
CALLED BEVERLY ON HER CELLPHONE. ABOUT THE WOUND VAC KEEPS ON BEEPING .ALSO INFORMED THE CHARGE NURSE JEANETTE.
--- NOTE | 2018-07-19 13:58 | NUR ---
1. Recommend changing current diet order to Regular. 2.Recommend Zenon / once a day for wound healing.
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
[2018-07-19 14:00] VITALS: BP 89/47
--- NOTE | 2018-07-19 14:57 | NUR ---
INFORMED FRANK VILLARREAL ABOUT THE WOUND CULTURE RESULT.
--- NOTE | 2018-07-19 16:03 | NUR ---
BEVERLY HERE TO SEE WOUND VAC.
--- NOTE | 2018-07-19 17:27 | NUR ---
LEFT ISCHIUM PRESSURE ULCER INJURY 7X5X2 WITH UNDERMINING BETWEEN 6-10 O'CLOCK AT 1.5CM DEPTH. WOUND BED 100% GRANULATING TISSUE, MODERATE AMOUNT SANGUINEOUS DRAINAGE, NO ODOR, ANNELIESE-WOUND SKIN INTACT. WOUND VAC DRESSING CHANGED NEW CANISTER REPLACED. PT. TOLERATE PROCEDURES WELL. PRIMARY RN NOTIFIED AND WILL CONTINUE TO MONITOR.
--- NOTE | 2018-07-19 18:39 | NUR ---
NO SIGNIFICANT CHANGE NOTED.WILL ENDORSE TO NEXT SHIFT.
--- NOTE | 2018-07-19 19:30 | NUR ---
PT IS A/O x4. MED SURG. DENIES ANY CHEST PAIN OR PRESSURE. PULSES ARE PRESENT. NO EDEMA NOTED. LUNGS CLEAR IN ALL FEILD. EQUAL CHEST RISE AND FALL. NO SIGN OF RESP DISTRESS. BOWEL SOUNDS PRESENT x4. COLOSTOMY BAG ON LLQ. CLEAN AND INTACT. NO LEAKAGE NOTED. STOMA IS VISBLE, PINK AND MOIST. CROCKER BAG BELOW THE BLADDER. CLEAR PALE YELLOW URINE NOTED. DRESSING ON R BUTTOCK IS CLEAN AND INTACT. WOUND VAC ON L BUTTOCK IS INTACT, NO DRAINAGE NOTED. DENIES ANY PAIN AT THIS TIME. IV ON LFA INTACT AND PATENT. NO SIGN OF IRRITATION OR INFILTRATION NOTED. SALINE LOCKED ON LAC, CLEAN AND INTACT. ASSISTED PT ON REPOSITING. PT IS A PARAPLEGIC, WHEELCHAIR AT BEDSIDE. BED IS AT LOWEST SETTING. CALL LIGHT WITHIN REACH. WILL CONTINUE TO MONTIOR.
[2018-07-19 20:28] VITALS: BP 91/48
--- NOTE | 2018-07-19 20:51 | NUR ---
VERIFIED AND REPORTED TO JACKY PHARMACIST ON VANCO TR LEVEL 15.7, ORDERED TO CONTINUE GIVING VANCO 1 GRAM Q12. WILL RELAY TO ASSIGNED NURSE.
--- NOTE | 2018-07-20 02:00 | NUR ---
PT IS RESTING IN BED WITH BOTHE EYES CLOSED. BREATHING EVEN AND UNLABORED. NO SIGN OF DISTRESS NOTED. 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 CROCKER BAG IN PLACE. WOUND VAC INTACT AND IN PLACE. IV INTACT AND PATENT. BED IS AT LOWEST SETTING. CALL LIGHT WITHIN REACH. WILL CONTINUE TO MONTIOR.
[2018-07-20 06:14] VITALS: BP 83/53
--- NOTE | 2018-07-20 06:28 | NUR ---
PT IS RESTING IN BED. WOUND VAC IS WAS REINFOURCED. SUCTION IN PLACE. CROCKER BAG BELOW THE BLADDER. COLOSTOMY BAG IN PLACE INTACT AND CLEAN. IV INTACT AND PATENT. NO SIGN OF IRRITION OR INFILTRATION NOTED. NO ACUTE EVENT OCCURED AT NIGHT. BED IS AT LOWEST SETTING. CALL LIGHT WITHIN REACH. CONTACT ISO IN PLACE. WILL ENDORSE TO AM NURSE.
--- NOTE | 2018-07-20 07:15 | NUR ---
AAO X4.PT PARAPLEGIC.ENIES ANY PAIN/DISCOMFORT.LUNGS CLEAR. PT NON TELE.IVF NS GOING AT 80 ML/HR INFUSING WELL.COLOSTOMY INTACT AND DRAINING WELL.WOUND VAC TO L BUTTOCK DRAINING WELL.CROCKER DRAINING TO GRAVITY YELLOW IN COLOR.CALL LIGTH WITHIN REACH.INSTRUCTED TO CALL FOR ANY PAIN/DISCOMFORT.WILL CONTINUE TO MONITOR PT.
[2018-07-20 07:19] LABS: BASOPHIL % 0.7 % (0-2)
[2018-07-20 07:33] LABS: CALCIUM 8.1 mg/dL (8.5-10.1); CARBON DIOXIDE 25.6 mmol/L (21-32); CHLORIDE SERUM 106 mmol/L (98-107); CREATININE SERUM 0.6 mg/dL (0.7-1.3); GFR1 > 60 mL/min; GLUCOSE SERUM 108 mg/dL (74-106); POTASSIUM SERUM 3.9 mmol/L (3.5-5.1); SODIUM SERUM 131 mmol/L (136-145)
--- NOTE | 2018-07-20 08:00 | NUR ---
PER REPORT BY NOC RN.PT REFUSED TO HAVE AIR MATTRESS ON.ALSO ASKED HIM IF HE WANT TO HAVE IT ASPER PT.HE IS GOING HOME ANYWAYSAND HE'S TURNING FINE CLAIMS THERE'S NO NEED TO HAVE IT ON.
[2018-07-20 08:44] LABS: PLATELET COUNT 707 x10^3mcL (130-400); RED CELL DISTRIBUTION WIDTH 18.9 % (11.5-14.5)
[2018-07-20 09:45] VITALS: BP 88/47
[2018-07-20] MEDS ORDERED: MERREM IV1 GM IV (10:26)
[2018-07-20 11:54] VITALS: BP 88/47
--- NOTE | 2018-07-20 12:31 | NUR ---
WOUND CARE EVALUATION NOTE: REASON FOR EVALUATION: LEFT AND RIGHT ISCHIUMS CHRONIC WOUNDS SKIN ASSESSMENT DONE THIS AM WITH THIS 37 Y/O MALE PT ADMITTED FROM HOME TO [facility] WITH INITIAL DX OF UTI. PAST MEDICAL HX INCLUDES PARAPLEGIA T10 SPINAL CORD INJURY, CHRONIC PRESSURE INJURIES. ALL ABOVE INFORMATION OBTAINED FROM ADMISSION H&P. PT IS AWAKE. SKIN IS WARM AND DRY, GOOD SKIN TURGOR, CONTRACTURE TO BLE. F/C PATENT AND MODERATE AMOUNT OF CLEAR YELLOW URINE OUTPUT NOTICE. COLOSTOMY IN PLACE. BLE NO HAIR GROWTH. EXPLAIN TO PT. SURGEON TO CONSULT DEBRIDEMENT RIGHT ISCHIUM, PT REFUSED. ALL RISKS AND BENEFIT EXPLAINED. PLAN OF CARE DISCUSSED WITH PRIMARY RN AND PT. PT. VERBALIZES UNDERSTANDING, ALL QUESTIONS ANSWERED. INTEGUMENTARY: -MID LOWER ABDMEN COLOSTOMY BAG INPLACE, FUNCTIONING, ANNELIESE-STOMA SKIN INTACT. -LEFT ISCHUM PRESSURE ULCER INJURY STAGE 4 IRREGULAR SHAPE, 7X5X2 WITH UNDERMINING BETWEEN 6-10 O'CLOCK AT 1.5CM DEPTH. WOUND BED 100% GRANULATING TISSUE, MODERATE AMOUNT SANGUINEOUS, DRAINAGE, NO ODOR, AND ANNELEISE-WOUND SKIN INTACT. -RIGHT HIP PRESSURE INJURY UN-STAGEABLE, 4X4 CM WOUND BED WITH 100% YELLOW/ BROWN SOFT SLOUGH TISSUE, DEPTH UNABLE TO DETERMIN, SURROUNDING REDNESS 5X6 CM INDICATED FURTHER DAMAGE, NO DRAINAGE, WOUND WITH MILD ODOR, ANNELIESE-WOUND SKIN INTACT. RECOMMENDATIONS: -NEGATIVE PRESSURE WOUND VAC THERAPY TO LEFT ISCHIUM PRESSURE ULCER INJURY, FOLLOW V.A.C THERAPY CLINICAL GUIDELINES. SET THERAPY ON CONTINOUS THERAPY AT 125 MMHG. CHANGE DRESSING Q72 HOURS AND PRN IS DISLOGGED. -PLEASE REMOVE WOUND VAC DRESSING AND APPLY MOIST TO DRY DRESSING TO LEFT ISCHIUM, COVER WITH DRY DRESSING AND SECURE WITH TAPE, UPON DISCHARGE -CLEANSE RIGHT ISCUIUM PRESSURE ULCER INJURY WITH WOUND CARE SOLUTION, PAT DRY, APPLY THERAHONEY GEL, COVER WITH DRY DRESSING QD AND PRN IF SOILING. -OFFLOAD BILATERAL HEELS BY PLACING PILLOWS UNDER CALVES UNLESS OTHERWISE CONTRAINDICATED -PRESSURE REDISTUBUTION SURFACE THERAPY -TURN AND REPOSITION Q2H, OFFLOAD SACRALCOCCYX AND LEFT AND RIGHT ISCHIUMS -CONTINUE TO FOLLOW RD RECOMMENDATIONS ALL ABOVE RECOMMENDATIONS DISCUSSED WITH PRIMARY RN WILL FOLLOW UP PT Q7-10 DAYS. PLEASE CONTACT WOUND CARE NURSE FOR ANY QUESTION AND CHANGE OF WOUND CONDITION.
--- NOTE | 2018-07-20 14:00 | NUR ---
RECEIVED ORDER FOR PT TO TRANSFER TO [facility].PAPERWORK COMPLETED.TOOK PICTURE TO R BUTTOCK WOUND AND ALSO ON L BUTTOCK WHERE THE WOUND VAC IS.PT REFUSED FOR THE WOUND VAC TO BE TAKEN OFF.
--- NOTE | 2018-07-20 14:30 | NUR ---
PER PT WILL JUST DISCONNECT AND CLAMP THE WOUND VAC DOES NOT WANT IT TO BE REMOVED.WANTED [facility] TO REMOVED THE DRESSING AND WILL HAVE THEM PUT THEIR OWN.
--- NOTE | 2018-07-20 17:26 | NUR ---
REPORT GIVEN TO SELVIN RIOS IN [facility].INFORMED HER ABOUT SUPERVISOR CUTTING AND SEWING ROOM TIME AT 1900 BY [facility].
[2018-07-20 17:37] VITALS: BP 87/46
--- NOTE | 2018-07-20 18:50 | NUR ---
NO SIGNIFICANT CHANGE NOTED WILL ENDORSE TO NEXT SHIFT.
--- NOTE | 2018-07-20 19:30 | NUR ---
PT IS A/O x4. ON MED SURG. DENIES ANY CHEST PAIN OR PRESSURE. PULSES ARE PRESENT. NO EDEMA NOTED. LUNGS CLEAR IN ALL FEILDS. ON RA, DENIES ANY SOB. EQAUL CHEST RISE AND FALL. NO SIGN OF RESP DISTRESS. PT IS CHANGING COLOSTOMY BAG. SUPPLIES AT BEDSIDE. CROCKER BAG BELOW THE BLADDER DRAINING PER GRAVITY. CLEAR YELLOW URINE NOTED. NO DEPENDENT LOOP OR KINK ON TUBING NOTED. DRESSING ON R BUTTOCK IS CLEAN AND INTACT. WOUND VAC ON L BUTTOCK IS INTACT AND CLEAN. DENIES ANY PAIN AT THIS TIME. IV ON LFA INTACT AND PATENT. PT IS AWARE OF TRANSFER TONIGHT. INSTRUCT PT TO MAKE SURE ALL BELONGING ARE WITH HIM. PER AM NURSE, REPORT WAS ALREADY GIVEN TP SELVIN RIOS AT RECIEVING FACILITY. [facility] TO LIVESTOCK PRODUCER PT AT 1900. SECUTARY CALLING TO CONFIRM LIVESTOCK PRODUCER. PT IN CONTACT ISO, PROTOCOL IN PLACE. BED IS AT LOWEST SETTING. CALL LIGHT WITHIN REACH. WILL CONTINUE TO MONTIOR.
--- NOTE | 2018-07-20 20:47 | NUR ---
[facility] HERE TO SENIOR PLANNING ANALYST PT. REPORT WAS GIVEN TO SENIOR PLANNING ANALYST. PT SALINE LOCKED. CROCKER BAG IS EMPTIED. ALL BELONGINGS WITH PT. WOUND VAC WAS STOPPED AND CLAMPED. PT IN NO DISTRESS WHEN LEAVING.
== END 2018-07-20 20:45 | DRG 720 ==
LOC: ED 00:33 → MU 03:30 → DU 03:30 → MU 04:36 → DU 07-18 20:31 → MU 07-19 14:05
PROVIDERS: Emergency Medicine; ADMIT Internal Medicine
DX: A41.9 Sepsis, unspecified organism (principal); E43 Unspecified severe protein-calorie malnutrition; L89.314 Pressure ulcer of right buttock, stage 4; G82.21 Paraplegia, complete; E87.1 Hypo-osmolality and hyponatremia; D47.3 Essential (hemorrhagic) thrombocythemia; N39.0 Urinary tract infection, site not specified; R73.03 Prediabetes; E87.6 Hypokalemia; R74.0 Nonspecific elevation of levels of transaminase and lactic acid dehydrogenase [LDH]; F12.10 Cannabis abuse, uncomplicated; Z93.3 Colostomy status; X95.9XXS Assault by unspecified firearm discharge, sequela; Z68.22 Body mass index [BMI] 22.0-22.9, adult
CPT/HCPCS: J2543; J3370; J3480; J7030; J7050

== ENCOUNTER 2018-08-25 19:18 | Emergency (ER) | payer OTHER ==
[~2018-08-25] VITALS: Ht 167.6 cm; Wt 58.1 kg
[~2018-08-25 19:18] MED LIST changes: +MERREM IV1 GM IV
[2018-08-25 19:27] VITALS: Ht 167.6 cm; Wt 58.1 kg
[2018-08-25 21:50] LABS: microscopic required? YES; urine erythrocyte TRACE (NEGATIVE)
[2018-08-25 21:52] VITALS: BP 91/48
[2018-08-25 22:04] LABS: AMPHETAMINE QUAL UR POSITIVE (See below)
== END 2018-08-25 22:49 | disposition home or self-care (01) ==
LOC: ED 19:18
PROVIDERS: Emergency Medicine
DX: N31.9 Neuromuscular dysfunction of bladder, unspecified (principal); N39.0 Urinary tract infection, site not specified; F15.10 Other stimulant abuse, uncomplicated; G82.20 Paraplegia, unspecified

== ENCOUNTER 2018-09-15 19:34 | Emergency (ER) | payer OTHER ==
[~2018-09-15] VITALS: Ht 167.6 cm; Wt 56.7 kg
[2018-09-15 19:39] VITALS: Ht 167.6 cm; Wt 56.7 kg
[2018-09-15 21:49] LABS: BASOPHIL % 1.3 % (0-2)
[2018-09-15 21:54] LABS: PLATELET COUNT 727 x10^3mcL (130-400); RED CELL DISTRIBUTION WIDTH 21.8 % (11.5-14.5)
[2018-09-15 22:03] LABS: CALCIUM 8.7 mg/dL (8.5-10.1); CARBON DIOXIDE 26.4 mmol/L (21-32); CHLORIDE SERUM 100 mmol/L (98-107); CREATININE SERUM 0.8 mg/dL (0.7-1.3); GFR1 > 60 mL/min; GLUCOSE SERUM 132 mg/dL (74-106); POTASSIUM SERUM 4.3 mmol/L (3.5-5.1); SODIUM SERUM 134 mmol/L (136-145)
[2018-09-15 22:08] LABS: ALKALINE PHOSPHATASE 327 U/L (46-116); ALT/SGPT 39 U/L (16-63); AST/SGOT 33 U/L (15-37); BILIRUBIN TOTAL 0.32 mg/dL (0.20-1.00); TOTAL PROTEIN, SERUM 7.4 g/dL (6.4-8.2)
[2018-09-15 22:12] LABS: ALBUMIN 1.3 g/dL (3.4-5.0)
[2018-09-15 22:16] LABS: rbc morphology (normal/abnorm) ABNORMAL (NORMAL)
[2018-09-15 23:10] VITALS: BP 115/67
== END 2018-09-15 23:10 | disposition left against medical advice (07) ==
LOC: ED 19:34
PROVIDERS: Emergency Medicine
DX: G82.20 Paraplegia, unspecified (principal); I82.4Z2 Acute embolism and thrombosis of unspecified deep veins of left distal lower extremity; L89.159 Pressure ulcer of sacral region, unspecified stage
CPT/HCPCS: 36415; 85378; J7030; Q0092; Q9967

== ENCOUNTER 2018-09-16 11:13 | Emergency (ER) | payer OTHER ==
[~2018-09-16] VITALS: Ht 167.6 cm; Wt 56.7 kg
[2018-09-16 11:15] VITALS: Ht 167.6 cm; Wt 56.7 kg
[2018-09-16 15:07] VITALS: BP 99/59
== END 2018-09-16 15:07 | disposition home or self-care (01) ==
LOC: ED 11:13
DX: M24.852 Other specific joint derangements of left hip, not elsewhere classified (principal); I82.412 Acute embolism and thrombosis of left femoral vein; L02.415 Cutaneous abscess of right lower limb; G82.20 Paraplegia, unspecified; R10.32 Left lower quadrant pain; Z98.890 Other specified postprocedural states
CPT/HCPCS: Q9967

== ENCOUNTER 2018-09-19 19:31 | Inpatient (IN) | payer OTHER ==
[~2018-09-19] VITALS: Ht 167.6 cm; Wt 56.7 kg
[2018-09-19 19:35] VITALS: Ht 167.6 cm; Wt 56.7 kg
--- NOTE | 2018-09-19 19:54 | NUR ---
PT AAOX4, LYING ON BED ON LT SIDE WITH C/O FEVERS X 3 DAYS. PT ALSO STATING 'I AM CONCERNED FOR THE STRONG ODOR OF MY URINE AND COMING FROM MY COLOSTOMY'. PT ALSO STATING PREVIOUS HX OF LT LEG BLOOD CLOT WITH SWELLING AND HEALING WOUNDS/ULCERS TO BLE WITH NO NEW INFECTION. PT NOTED TO HAVE A STRONG ODOR, PT ALSO NOTED TO HAVE BLE WEAKNESS WITH A HX OF PARAPLEGIA. NO SIGNS OF DISTRESS AT THIS TIME.
--- NOTE | 2018-09-19 20:10 | NUR ---
PT STATING HE DID NOT WANT TO GET IN A GOWN.
[2018-09-19 20:44] LABS: BASOPHIL % 0 % (0-2); RED CELL DISTRIBUTION WIDTH 21.6 % (11.5-14.5)
--- NOTE | 2018-09-19 20:45 | NUR ---
PT STATING HE DOES NOT WANT TO PUT A GOWN ON AT THIS TIME.
[2018-09-19 20:46] LABS: PLATELET COUNT 709 x10^3mcL (130-400)
[2018-09-19 20:48] LABS: CALCIUM 8.3 mg/dL (8.5-10.1); CARBON DIOXIDE 25.9 mmol/L (21-32); CHLORIDE SERUM 100 mmol/L (98-107); CREATININE SERUM 0.8 mg/dL (0.7-1.3); GFR1 > 60 mL/min; GLUCOSE SERUM 201 mg/dL (74-106); POTASSIUM SERUM 3.6 mmol/L (3.5-5.1); SODIUM SERUM 135 mmol/L (136-145)
[2018-09-19 20:52] LABS: ALKALINE PHOSPHATASE 356 U/L (46-116); ALT/SGPT 36 U/L (16-63); AST/SGOT 29 U/L (15-37); BILIRUBIN TOTAL 0.33 mg/dL (0.20-1.00); TOTAL PROTEIN, SERUM 6.7 g/dL (6.4-8.2)
[2018-09-19 20:53] LABS: ALBUMIN 1.1 g/dL (3.4-5.0)
--- NOTE | 2018-09-19 21:08 | NUR ---
PT RESTING IN BED WITH NO SIGNS OF DISTRESS AT THIS TIME.
[2018-09-19 21:28] LABS: rbc morphology (normal/abnorm) ABNORMAL (NORMAL)
[2018-09-19 21:29] LABS: tear drop cell (dacryocyte) 1+
--- NOTE | 2018-09-19 21:30 | NUR ---
BROTHER IN LAW AT BEDSIDE. PT STATES HE DOESN'T WANT TO HAVE F/C PUT IN YET. DR GAUTHIER AWARE.
--- NOTE | 2018-09-19 22:20 | NUR ---
DR GAUTHIER MADE AWARE OF BP/MAP.
--- NOTE | 2018-09-19 22:34 | NUR ---
REPORT GIVEN TO TRACY MONTALVO.
--- NOTE | 2018-09-19 22:49 | NUR ---
PT STATING HE DOES NOT WANT TO PUT THE GOWN ON OR HAVE F/C PLACED UNTILL HE IS UPSTAIRS. WILL INFORM FLOOR RN.
[2018-09-19 22:52] LABS: MAGNESIUM 1.6 mg/dL (1.8-2.4); PHOSPHOROUS 3.2 mg/dL (2.5-4.9)
--- NOTE | 2018-09-19 23:15 | NUR ---
RECEIVED PT VIA GUERNEY FROM E/D, ACCOMPANIED BY TRANSPORTER. PT A/A/O X 4, CALM, COOPERATIVE. ON TELE # 26, HR 86, NSR, DENIES CHEST PAIN OR DISCOMFORT AT THIS TIME. NO ACUTE RESPIRATORY DISTRESS NOTED. ABD SOFT, ROUND, NON-TENDER, NORMOACTIVE BOWEL SOUNDS X 4 QUADS, STRONG ODOR FROM COLOSTOMY TO L ABD, BROWN PASTY FECAL MATTER IN BAG. SELF-CATHS @ HOME 2/2 NEUROGENIC BLADDER; INSTALLED 16FR F/C, DRAINING YELLOW URINE W/ STRONG ODOR. PT PARAPLEGIC 2/2 T10 INJURY, USES W/C (@ BEDSIDE), FALL RISK PROTOCOL IN PLACE. BILATERAL BUTTOCKS ULCER W/ WOUND VAC, LALM FOR SKIN MANAGEMENT. IV SITE RFA 20G, CDI. ORIENTED PT TO ROOM, BED CONTROLS, CALL LIGHT SYSTEM. SIDE RAILS UP X 2, BED IN LOW POSITION. WILL ENDORSE TO SELVIN WATKINS.
[2018-09-19 23:53] VITALS: BP 96/61
--- NOTE | 2018-09-20 00:14 | NUR ---
ATTEMPTED CROCKER CATHTER INSERTION X2. COILED. UNSUCCESSFUL. PT PREFERED NOT TO TRY AGAIN AT THIS TIME.
--- NOTE | 2018-09-20 00:44 | NUR ---
IV NS @1000ML/HR RUNNING PER ORDER. PT TOLERATING WELL.
--- NOTE | 2018-09-20 03:33 | NUR ---
PT REFUSING TO GO DOWN FOR CT ANGIO. PT STATED THAT HE WOULD PREFER LATER IN THE MORNING. RESIDENT AWARE.
--- NOTE | 2018-09-20 05:30 | NUR ---
PT BP: 75/41. INCREASED RATE TO BOLUS 500ML/HR PER RESIDENT ORDER. WILL REASSESS BP. PT NOT SYMPTOMATIC. DENIES HEADACHE, DIZZINESS, STATES "I NORMALLY RUN LOW"
[2018-09-20 05:53] VITALS: BP 75/41
--- NOTE | 2018-09-20 06:45 | NUR ---
RECHECKED PT BP AFTER BOLUS: 84/53. PAGED RESIDENT. AWAITING CALL BACK.
--- NOTE | 2018-09-20 06:55 | NUR ---
PT REFUSING LAB DRAW. PAGED RESIDENT TO INFORM.
--- NOTE | 2018-09-20 06:57 | NUR ---
RESIDENT AWARE OF PT REFUSING BLOOD DRAW.
[2018-09-20 07:36] LABS: CALCIUM 7.6 mg/dL (8.5-10.1); CARBON DIOXIDE 26.1 mmol/L (21-32); CHLORIDE SERUM 112 mmol/L (98-107); CREATININE SERUM 0.5 mg/dL (0.7-1.3); GFR1 > 60 mL/min; GLUCOSE SERUM 120 mg/dL (74-106); MAGNESIUM 1.6 mg/dL (1.8-2.4); PHOSPHOROUS 3.6 mg/dL (2.5-4.9); POTASSIUM SERUM 3.4 mmol/L (3.5-5.1); SODIUM SERUM 144 mmol/L (136-145)
--- NOTE | 2018-09-20 07:50 | NUR ---
ALERT AND ORIENTED. CONTACT ISOLATION FOR HX MDRO AND MRSA TO WOUND. DENIES ANY PAIN AT THIS TIME. BREATHING FREELY ON RA. TELE # 26 ST HR 101. NS INFUSING 125 CC HOUR RT FA. NPO FOR CT ANGIO PULM AND CT GUIDED DRAIN ABCESS TO LEFT WOUND. ATTACHED TO WOUND VAC LEFT AND RIGHT HIPS. HAS OWN W/C IN ROOM. PARAPLEGIC. ABLE TO REPOSITIION SELF IN BED. DENIES ANY PAIN. INCONTINENT OF URINE. COLOSTOMY BAG RIGHT ABD. GAVE PT SUPPLIES TO CHANGE REQUESTED. CALL LIGHT WITHIN REACH.
--- NOTE | 2018-09-20 08:11 | NUR ---
SPOLE WITH SOLEDAD FROM CT. CT ANGIO AND CT GUIDED ABCESS DRAIN WILL BE AFTER LUNCH. PT MAY HAVE BREAKFAST. OBTAINED ORDER FROM RESIDENT. US VENOUS BEING PERFORMED NOW.
[2018-09-20 09:33] LABS: RED CELL DISTRIBUTION WIDTH 22.1 % (11.5-14.5)
[2018-09-20 09:58] VITALS: BP 91/49
[2018-09-20 11:46] LABS: BAND NEUTROPHIL 1 % (0-10); BASOPHIL 0 % (0-2); MONOCYTE 3 % (0-7); PLATELET MORPHOLOGY PLATELETS INCREASED; SEGMENTED NEUTROPHILS 90 % (37-75); rbc morphology (normal/abnorm) ABNORMAL (NORMAL)
[2018-09-20 13:30] VITALS: BP 100/53
--- NOTE | 2018-09-20 13:38 | NUR ---
PT WENT TO CT FOR CT ANGIO AND ABSCESS DRAIN. TELE STATION INFORMED. TELE # 26 LEFT ON OVERBED TABLE.. SEEN BY .
[2018-09-20 14:39] LABS: PLATELET COUNT 617 x10^3mcL (130-400)
--- NOTE | 2018-09-20 15:37 | NUR ---
WOUND VAC ORDERED REQUEST FOR TODAY'S DELIVERY FROM [facility] [phone] REFERENCE #[id number]
--- NOTE | 2018-09-20 16:08 | NUR ---
BACK FROM CT ANGIO AND CT GUIDED ABCSESS DRAIN OF ABSCESS LEFT ABD. NOTHING TO DRAIN FOUND. SEEN BY BEVERLY. SHE WILL BRING NEW WOUND VAC TOMORROW. INMEAN TIME PT WANTS TO REMOVED OWN WOUND VAC AND HAVE WET TO DRY DRESINGS APPLIED.
--- NOTE | 2018-09-20 16:39 | NUR ---
REMOVED EXSISTING DRESSING TO LEFT HIP/ DISCONNECTED FROM WOUND VAC. FLUSHED WOUND WITH NS. NO DRAINAGE NOTED. PACKED WITH WET GAUZE AND COVERED WITH ABD PADS X 2.
[2018-09-20 17:00] VITALS: BP 95/48
[2018-09-20 19:05] LABS: IRON 13 ug/dL (65-170)
[2018-09-20 19:06] LABS: TOTAL IRON BINDING CAPACITY 96 ug/dL (250-450)
--- NOTE | 2018-09-20 19:30 | NUR ---
REMAINS ALERT AND ORIENTED. ABLE TO PERFORM HIS OWN COLOSTOMY CARE. WOUND VAC DELIVERED. BEVERLY WILL BE HERE IN AM TO PERFORM WOUND CARE. CONTINUES ON VANCO AND ZOSYN IV ABX. NS 125 CC HOUR. ACCUCK AT [id number]. DID NOT GIVE INSULIN PT HAD VERY LATE LUNCH. ENDORSED TO BIOTECH PRODUCTION SPECIALIST. NO C/O PAIN THIS SHIFT. CALL LIGHT WITHIN REACH.
[2018-09-20 20:00] VITALS: BP 97/50
--- NOTE | 2018-09-20 20:00 | NUR ---
RECEIVED PT AWAKE ALERT AND VERBALLY RESPONSIVE.PARAPLEGIC BUT ABLE TO REPOSITION SELF.COLOSTOMY BAG STARTING TO LEAK PER PT AND DOES HIS OWN COLOSTOMY BAG CHANGING.SUPPLIES PROVIDED.WOUND VAC TO L BUTTOCK WOUND INTACT.DRESSING TO L BUTTOCK INTACT.PT INCONTINENT.CHANGED PADS AND GOOD PERICARE RENDERED.DENIES ANY PAIN AT THIS TIME.LATEST BP 97/50 MMHG,HR 118.ON CONTACT ISOLATION FOR HX MRSA/MDRO.WILL CONTINUE TO MONITOR.
--- NOTE | 2018-09-21 04:46 | NUR ---
PT SLEPT WITH INTERVALS.TURNED AND REPOSITIONED EVERY 2 HOURS.NO ASE NOTED FROM ZOSYN AND VANCOMYCIN IV ATB.DENIES ANY PAIN ALL NIGHT.CHANGED DRESSING TO L BUTTOCK AND COVERED WITH ABDOMINAL PADS.PT CHANGED COLOSTOMY BAG X1 TO PASTY STOOL.ON CONTACT ISOLATION FOR HX MDRO AND MRSA WOUND.GOODHANDWASHING TECHNIQUE OBSERVED.ALL NEEDS MET.WILL CONTINUE TO MONITOR.
[2018-09-21 05:39] VITALS: BP 94/50
--- NOTE | 2018-09-21 07:12 | NUR ---
PATIENT REFUSED ECHOCARDIOGRAM-STATES HE DOES NOT WANT IT-BEING DISCHARGED TODAY
--- NOTE | 2018-09-21 07:25 | NUR ---
RECEIVED PT FROM JUNIOR SALES ASSISTANT. PT ASLEEP AT THIS TIME. PT ON TELE 26 WITH NO CHEST PAIN NOTED. PT ON ROOM AIR WITH NO RESP DISTRESS NOTED. IV ACCESS RFA x 2 C/D/I INFUSING NS AT 125ML/HR. PT NOTED TO BE PARAPLEGIC. EDEMA NOTED TO LEFT FOOT. PT NOTED TO HAVE COLOSTOMY BAG. DRESSING TO WOUNDS C/D/I. SAFETY MEASURES IN PLACE, BED LOW AND LOCKED. CALL LIGHT WITHIN REACH.
[2018-09-21 07:31] LABS: CALCIUM 7.7 mg/dL (8.5-10.1); CARBON DIOXIDE 25.2 mmol/L (21-32); CHLORIDE SERUM 108 mmol/L (98-107); CREATININE SERUM 0.6 mg/dL (0.7-1.3); GFR1 > 60 mL/min; GLUCOSE SERUM 110 mg/dL (74-106); MAGNESIUM 1.7 mg/dL (1.8-2.4); PHOSPHOROUS 3.6 mg/dL (2.5-4.9); POTASSIUM SERUM 3.5 mmol/L (3.5-5.1); SODIUM SERUM 142 mmol/L (136-145)
[2018-09-21 07:50] VITALS: BP 95/48
--- NOTE | 2018-09-21 08:15 | NUR ---
SPOKE TO PT. REGARDING TO WOUND CARE CONSULT AND WOUND VAC DRESSING CHANGE. PT. REFUSED. HE STATE" I DO NOT WANT ANY PROCEDURE DONE HERE." EXPLAIN TO PT OF TRACY'S ORDER AND I WOUND VAC IS AT BEDSIDE FOR DRESSING CHANGE, PT. REQUEST TO USE HIS OWN VAC MACHINE, EXPLAIN TO PT. HOSPITAL P&P. AND WILL DISCUSS WITH PRIMARY RN AT THIS TIME.
[2018-09-21 08:38] LABS: RED CELL DISTRIBUTION WIDTH 22.9 % (11.5-14.5)
[2018-09-21 08:48] LABS: BAND NEUTROPHIL 1 % (0-10); BASOPHIL 0 % (0-2); MONOCYTE 2 % (0-7); SEGMENTED NEUTROPHILS 91 % (37-75)
[2018-09-21 08:49] LABS: PLATELET MORPHOLOGY PLATELETS INCREASED; rbc morphology (normal/abnorm) ABNORMAL (NORMAL)
--- NOTE | 2018-09-21 09:15 | NUR ---
DUE MEDS ADMINISTERED ORDERED. PT REFUSES COLACE AT THIS TIME. NO ACUTE DISTRESS OR DISCOMFORT NOTED AT THIS TIME. SAFETY MAINTAINED.
--- NOTE | 2018-09-21 11:00 | NUR ---
AT PT ROOM WITH PRIMARY RN ATTEMP TO HAVE WOUND VAC DRESSING CHANGE. PT. REQUEST AMA, CHARGE NURSE ALSO CONFIRM THE AMA.
--- NOTE | 2018-09-21 11:02 | NUR ---
PT SITTING AT SIDE OF BED GETTING DRESSED. PT STATES HE IS LEAVING. EDUCATION PROVIDED REGARDING DISCHARGE ORDERS. PT UNDERSTANDS AND STATES HE WANTS TO LEAVE "RIGHT NOW". EXPLAINED IN ORDER TO DO SO IT WOULD BE AGAINST MEDICAL ADVICE. PT UNDERSTANDS AND STATES HE WANTS TO GO AMA. PAPERWORK SIGNED. DR WILDER AWARE AT BEDSIDE WITH PT. PT IV REMOVED WITH CATHETER INTACT. PT HELPED TO WHEELCHAIR. PT FRIEND WITH [facility] HERE TO TAKE PATIENT. SAFETY MAINTAINED.
[2018-09-21 12:30] LABS: PLATELET COUNT 506 x10^3mcL (130-400)
--- NOTE | 2018-09-21 13:47 | NUR ---
P.T. NOTES UNABLE TO SEE PATIENT FOR P.T., PATIENT LEFT HOSPITAL AMA.
--- NOTE | 2018-09-21 16:57 | NUR ---
PHYSICAL THERAPY DAILY NOTES CO-SIGN All documentation done by the Nurse Practitioner Physician Assistant for 09/21/18 has been reviewed. I agree with the documentation. Reviewed/Co-Signed by: Claudio Banerjee PT Documentation Done by:ALEJA FISHER PT
== END 2018-09-21 11:02 | disposition left against medical advice (07) | DRG 720 ==
LOC: ED 19:31 → DU 21:51
PROVIDERS: Emergency Medicine; ADMIT Internal Medicine
PROC: 0WJJ3ZZ Inspection of Pelvic Cavity, Percutaneous Approach (ICD-10-PCS; principal; 2018-09-20)
DX: A41.9 Sepsis, unspecified organism (principal); E43 Unspecified severe protein-calorie malnutrition; K65.1 Peritoneal abscess; L89.314 Pressure ulcer of right buttock, stage 4; G82.21 Paraplegia, complete; E87.1 Hypo-osmolality and hyponatremia; L89.324 Pressure ulcer of left buttock, stage 4; M87.9 Osteonecrosis, unspecified; E83.42 Hypomagnesemia; S24.113S Complete lesion at T7-T10 level of thoracic spinal cord, sequela; F14.10 Cocaine abuse, uncomplicated; F12.10 Cannabis abuse, uncomplicated; F15.10 Other stimulant abuse, uncomplicated; R73.03 Prediabetes; Z93.3 Colostomy status; Z99.3 Dependence on wheelchair; Z68.20 Body mass index [BMI] 20.0-20.9, adult; X95.9XXS Assault by unspecified firearm discharge, sequela; D64.9 Anemia, unspecified; R65.20 Severe sepsis without septic shock; Z53.21 Procedure and treatment not carried out due to patient leaving prior to being seen by health care provider
CPT/HCPCS: 49406; 82962; 85378; G0378; J1644; J2001; J2543; J3370; J7030; J7040; J7050; Q0092; Q9967

== ENCOUNTER 2019-03-16 01:49 | Inpatient (IN) | payer OTHER ==
[~2019-03-16] VITALS: Ht 167.6 cm; Wt 58.2 kg
[2019-03-16 02:06] VITALS: Ht 167.6 cm; Wt 58.2 kg
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
[2019-03-16 02:49] LABS: UA SPECIFIC GRAVITY 1.025 (1.005-1.035); microscopic required? YES; urine erythrocyte TRACE (NEGATIVE)
--- NOTE | 2019-03-16 02:50 | NUR ---
PT REFUSED PROTOCOL MEDICATION OF TYLENOL OR IBUPROFEN FOR FEVER.
[2019-03-16 02:52] LABS: BASOPHIL % 0.5 % (0-2)
[2019-03-16 02:55] LABS: CALCIUM 8.4 mg/dL (8.5-10.1); CARBON DIOXIDE 24.3 mmol/L (21-32); CHLORIDE SERUM 102 mmol/L (98-107); CREATININE SERUM 0.6 mg/dL (0.7-1.3); GFR1 > 60 mL/min; GLUCOSE SERUM 111 mg/dL (74-106); POTASSIUM SERUM 3.6 mmol/L (3.5-5.1); SODIUM SERUM 137 mmol/L (136-145)
[2019-03-16 03:01] LABS: ALBUMIN 1.9 g/dL (3.4-5.0); ALKALINE PHOSPHATASE 163 U/L (46-116); ALT/SGPT 34 U/L (16-63); AST/SGOT 27 U/L (15-37); BILIRUBIN TOTAL 0.4 mg/dL (0.20-1.00); TOTAL PROTEIN, SERUM 8.2 g/dL (6.4-8.2)
[2019-03-16 03:09] LABS: RED CELL DISTRIBUTION WIDTH 20.8 % (11.5-14.5)
[2019-03-16 03:10] LABS: PLATELET COUNT 596 x10^3mcL (130-400)
[2019-03-16] MEDS ORDERED: VITAMIN C500 M6 PO (03:56)
[2019-03-16] MEDS ORDERED: FEOSOL65 M1 PO (03:56)
[2019-03-16] MEDS ORDERED: STOOL SOFTENER240 MG PO (03:56)
[2019-03-16] MEDS ORDERED: MIRALAX17 GM PO (03:57)
[2019-03-16] MEDS ORDERED: MAGNESIUM400 M1 PO (03:57)
[2019-03-16] MEDS ORDERED: SENNA8.6 M2 PO (03:58)
[2019-03-16] MEDS ORDERED: NORCO1 TA2 PO (03:58)
[2019-03-16 04:29] LABS: AMPHETAMINE QUAL UR POSITIVE (See below)
--- NOTE | 2019-03-16 04:55 | NUR ---
PT RESTING IN BED CONVERSATING WITH REASDIENT AT BEDSIDE. PT VITALS ARE STABLE. PT HAS NO COMPLAINTS AT THIS TIME. PT IS A/O X4. NO ACUTE DISTRESS NOTED.
[2019-03-16 05:44] LABS: BASOPHIL % 0.5 % (0-2)
[2019-03-16 05:49] LABS: PLATELET COUNT 478 x10^3mcL (130-400); RED CELL DISTRIBUTION WIDTH 23.1 % (11.5-14.5)
[2019-03-16 06:04] LABS: CALCIUM 8.1 mg/dL (8.5-10.1); CARBON DIOXIDE 24.5 mmol/L (21-32); CHLORIDE SERUM 106 mmol/L (98-107); CREATININE SERUM 0.6 mg/dL (0.7-1.3); GFR1 > 60 mL/min; GLUCOSE SERUM 108 mg/dL (74-106); MAGNESIUM 1.7 mg/dL (1.8-2.4); PHOSPHOROUS 3.5 mg/dL (2.5-4.9); POTASSIUM SERUM 3.3 mmol/L (3.5-5.1); SODIUM SERUM 139 mmol/L (136-145)
--- NOTE | 2019-03-16 07:39 | NUR ---
REPORT GIVEN TO ASHU MONTALVO TO ASSUME CARE OF PT.
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
[2019-03-16 10:41] VITALS: BP 93/61
[2019-03-16 12:40] VITALS: BP 96/54
--- NOTE | 2019-03-16 14:53 | NUR ---
PHYSICAL THERAPY DAILY NOTES CO-SIGN All documentation done by the Solar Photovoltaic Installer for 03/16/19 has been reviewed. I agree with the documentation. Reviewed/Co-Signed by: Ashley Granados PT Documentation Done by:SUSHANT MASCORRO SPT
[2019-03-16 15:48] VITALS: BP 108/68
--- NOTE | 2019-03-16 18:48 | NUR ---
PATIENT IN BED AT THIS TIME, NO COMPLAINTS. PATIENT ASKED FOR NEW COLOSTOMY, STATES HE CAN CHANGE IT HIMSELF. US TAKEN, US TECHS SPOKE WITH DR YOUNG TO CLARIFY ORDER. WILL ENDORSE TO ONCOMING NURSE. CALL LIGHT IN REACH.
--- NOTE | 2019-03-16 19:15 | NUR ---
PT RECEIVED A/O X4, ABLE TO MAKE NEEDS KNOWN. TELE #17, PT DENIES ANY CP/PRESSURE. PULSES PALPABLE, NO EDEMA PRESENT. BREATHING IS EVEN AND UNLABORED ON RA, NO RESP DISTRESS NOTED. ABD SOFT AND NONDISTENDED, COLOSTOMY IN PLACE TO ABD, PINK STOMA NOTED, PT JUST CHANGED COLOSTOMY BAG AT THIS TIME. SUPBRAPUBIC CATH IN PLACE DRAINING TO GRAVITY. GENERALIZED WEAKNESS, PT HAS HX OF PARAPLEGIA, WHEELCHAIR AT BASELINE/BEDSIDE, ON AIR MATTRESS. OPEN WOUNDS NOTED TO LEFT AND RIGHT BUTTOCKS, DRSG IN PLACE, CDI. PT DENIES ANY PAIN AT THIS TIME. IV TO LAC INTACT. NO ACUTE DISTRESS NOTED. BED IN LOWEST SETTING, SIDE RAILS UP X2, CALL LIGHT WITHIN REACH. WILL CONT TO MONITOR.
[2019-03-16 20:34] VITALS: BP 115/74
--- NOTE | 2019-03-16 23:50 | NUR ---
DR MONTES AT BEDSIDE FOR CONSULT. ALL QUESTIONS AND CONCERNS ADDRESSED. ORDERS RECEIVED. WILL CONT TO MONITOR.
[2019-03-17 07:30] LABS: CHLORIDE SERUM 108 mmol/L (98-107); POTASSIUM SERUM 3.8 mmol/L (3.5-5.1); SODIUM SERUM 139 mmol/L (136-145)
[2019-03-17 07:31] LABS: CALCIUM 8.3 mg/dL (8.5-10.1); CARBON DIOXIDE 25.9 mmol/L (21-32); CREATININE SERUM 0.5 mg/dL (0.7-1.3); GFR1 > 60 mL/min; GLUCOSE SERUM 96 mg/dL (74-106); MAGNESIUM 2.1 mg/dL (1.8-2.4); PHOSPHOROUS 3.5 mg/dL (2.5-4.9)
[2019-03-17 07:37] LABS: PLATELET COUNT 511 x10^3mcL (130-400)
--- NOTE | 2019-03-17 07:46 | NUR ---
PT SLEPT WELL THROUGHOUT THE EVENING. BREATHING IS EVEN AND UNLABORED, NO RESP DISTRESS NOTED. DRSGs TO MAR WOUNDS CHANGED PER PT'S REQUEST. ABD BINDER AND ISLAND DRSG PLACED. IVF INFUSING WELL, SITE WNL. NO ACUTE CHANGES ENCOUNTERD DURING SHIFT. ALL NEEDS MET AND ANTICIPATED. CALL LIGHT WITHIN REACH. CONTINUITY OF CARE ENDORSED TO AM NURSE.
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
--- NOTE | 2019-03-17 09:11 | NUR ---
PATIENT RESTING IN BED BEVERLY RN AT BEDSIDE PROVIDE WOUND CARE, RT HIP WOUND ROUND, WOUND IS HEALTHY RED NOTED. LT HIP ALREADY COVER UP BUT PER BEVERLY LT HIP WOUND IS TUNNELING. ALL PO MEDS ADMINSITERED AND TOLERATED. IV TO LAC INTACT AND PATENT. CONT TO MONITOR.
[2019-03-17 10:58] LABS: rbc morphology (normal/abnorm) ABNORMAL (NORMAL)
[2019-03-17 12:43] VITALS: BP 99/69
--- NOTE | 2019-03-17 12:59 | NUR ---
DR. MCPHERSON SIG OFF ON PATIENT, PATIENT DECLINED THE NEED FOR DEBRIDEMENT TO LEFT HIP, PATIENT STATES DIVYA ROJAS IS FOLLOWING DECUBITUS ULCER.
[2019-03-17 15:55] VITALS: BP 110/70
--- NOTE | 2019-03-17 17:08 | NUR ---
PATIENT RESTING IN BED NO C/O PAIN. VANCOMYCIN IVPB AT 133ML/HR INFUSING AND LACTINEX ADMINISTERED. PATIENT TOLERATED. LT HIP DRESSING LEAKING, SMELL LIKE URINE, CLEAN SITE W/ WOUND CLEANSER, APPLIED THERAHONEY AND GAUZES, COVER W/ ISLAND, AND ABD. PATIENT TOLERATED. NEEDS MET. CONT TO MONITOR
--- NOTE | 2019-03-17 19:15 | NUR ---
PT RECEIVED A/O X4, ABLE TO MAKE NEEDS KNOWN. TELE #17, PT DENIES ANY CP/PRESSURE. PULSES PALPABLE, NO EDEMA PRESENT. BREATHING IS EVEN AND UNLABORED ON RA, NO RESP DISTRESS NOTED. ABD SOFT AND NONDISTENDED, COLOSTOMY IN PLACE TO LLQ, PINK STOMA NOTED. SUPBRAPUBIC CATH IN PLACE DRAINING TO GRAVITY, FOUL YELLOW URINE NOTED. GENERALIZED WEAKNESS, WEAKNESS TO BLE. PT HAS HX OF PARAPLEGIA AND IS ABLE TO TRANSFER TO AND FROM WHEELCHAIR INDEPENDENTLY, ON AIR MATTRESS. OPEN WOUNDS NOTED TO LEFT AND RIGHT BUTTOCKS, DRSG IN PLACE, CDI. WOUND CARE NURSE CAME DURING DAY SHIFT TO EVALUATE WOUNDS. PT DENIES ANY PAIN AT THIS TIME. IV TO LAC INTACT. NO ACUTE DISTRESS NOTED. FAMILY AT BEDSIDE. BED IN LOWEST SETTING, SIDE RAILS UP X2, CALL LIGHT WITHIN REACH. WILL CONT TO MONITOR.
[2019-03-17 22:03] VITALS: BP 126/69
[2019-03-18 05:45] VITALS: BP 104/67
--- NOTE | 2019-03-18 06:15 | NUR ---
PT SLEPT AT INTERVALS THROUGHOUT THE EVENING. BREATHING IS EVEN AND UNLABORED, NO RESP DISTRESS NOTED. PT DENIES HAVING ANY PAIN AT THIS TIME. ATTEMPTED TO DO DAILY WOUND CARE DRSG, PT REFUSED AND STATES, "I'M TIRED, CAN WE JUST DO IT AT BREAKFAST?" WOUND CARE SUPPLIES AT BEDSIDE. SUPRAPUBIC CATH DRAINING TO GRAVITY. COLOSTOMY IN PLACE, PINK STOMA NOTED. IV TO LFA PATENT AND INTACT. NO ACUTE CHANGES ENCOUNTERED DURING SHIFT. ALL NEEDS MET AND ANTICIPATED. CALL LIGHT WITHIN REACH. WILL ENDORSE CARE TO AM NURSE.
--- NOTE | 2019-03-18 07:05 | NUR ---
RECIEVED PT RESTING IN BED WITH NO C/O PAIN OR IDTRESS. A/O X4 WITH NO FAYE OR DIZZINESS. TELE#17 CONNECTED TO PT, DENIES CP OR PRESSURE. LUNGS CTAB. COPLOSTOMY IN PLACE AND DRAINING, PT DOES OWN COLOSTOMY CARE/EMPTYING. SUPRAPUBIC IN PLACE AND DRAINING YELLOW URINE, PT ALSO DOES OWN SUPRAPUBIC CARE AND DRAINING. RLE CONTRACTURE. RIGH AND LEFT HIP OPEN WOUNDS WITH ABD PADS AND ISLAND DRSSINGS, CDI. NS RUNNING 70ML/HR IN LAC, IV CDI AND PATENT. SAFETY PRECAUTIONS IN PLACE, CALL LIGHT KENDALL KHALIL, WILL MONITOR.
[2019-03-18 07:14] LABS: BASOPHIL % 0.9 % (0-2)
[2019-03-18 07:15] LABS: PLATELET COUNT 486 x10^3mcL (130-400); RED CELL DISTRIBUTION WIDTH 22.7 % (11.5-14.5)
[2019-03-18 08:18] LABS: CALCIUM 8.2 mg/dL (8.5-10.1); CARBON DIOXIDE 22 mmol/L (21-32); CHLORIDE SERUM 107 mmol/L (98-107); CREATININE SERUM 0.5 mg/dL (0.7-1.3); GFR1 > 60 mL/min; GLUCOSE SERUM 114 mg/dL (74-106); POTASSIUM SERUM 3.8 mmol/L (3.5-5.1); SODIUM SERUM 139 mmol/L (136-145)
[2019-03-18 08:19] LABS: MAGNESIUM 2.4 mg/dL (1.8-2.4); PHOSPHOROUS 3.2 mg/dL (2.5-4.9)
[2019-03-18 08:53] VITALS: BP 97/61
[2019-03-18 12:21] VITALS: BP 102/63
--- NOTE | 2019-03-18 13:52 | NUR ---
PT STABLE WITH NO C/O PAIN OR DISTRESS. TELE BOX RETURNED TO MT PER ORDER. PT CHANGED COLOSTOMY BAG ON OWN, CDI. SAFETY PRECAUTIONS IN PLACE, CALL LIGHT WITHIN REAQCH, WILL MONITOR.
--- NOTE | 2019-03-18 16:29 | NUR ---
WOUND CARE DONE TO ALL WOUNDS, DRESSING CDI. ALSO, DR KOHLI NOTIFIED OF WOUND CULTURE RESULTS.
[2019-03-18 17:31] VITALS: BP 102/70
--- NOTE | 2019-03-18 18:17 | NUR ---
PT RESTING IN BED WITH NO C/O PAIN OR DISTRESS. A/O X4 WITH NO FAYE OR DIZZINESS. DENIES ANY CP OR PRESSURE AT THIS TIME. LUNGS CTAB. COLOSTOMY IN PLACE AND DRAINING, PT DID OWN COLOSTOMY CARE/EMPTYING. SUPRAPUBIC CATH IN PLACE AND DRAINING YELLOW URINE, PT ALSO DID OWN SUPRAPUBIC CARE AND DRAINING. RLE CONTRACTURE. RIGHT AND LEFT BUTTOCK/HIP OPEN WOUNDS, DRESSINGS CHANGED TODAY, CDI AT THIS TIME. NS RUNNING 70ML/HR IN LAC, IV CDI AND PATENT. SAFETY PRECAUTIONS IN PLACE, CALL LIGHT WITHIN REACH, WILL ENDORSE CARE TO NIGHT NURSE.
--- NOTE | 2019-03-18 21:21 | NUR ---
Awake and verbally responsive. No respiratory distress noted on room air. Denies pain. Denies n/v. Contact isolation observed. Call light within reach. Will cont.to monitor.
[2019-03-18 21:25] VITALS: BP 104/63
--- NOTE | 2019-03-19 04:52 | NUR ---
Afebrile. No significant change in condition noted. Able to care for his own colostomy and suprapubic catheter. Uses wheelchair to move around the room when out of bed. Cont.on IV cefepime, vancomycin. Contact isolation MRSA/MDRO/ESBL, proper use of PPE and good hand hygiene observed. In no apparent distress.
[2019-03-19 05:58] VITALS: BP 94/62
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
[2019-03-19 08:16] VITALS: BP 105/87
--- NOTE | 2019-03-19 10:20 | NUR ---
PATIENT NOTED WITH FOUL ODOR OF URINE. PATIENT IS ON IV ANTIBIOTICS FOR UROSEPSIS INDICATED. PATIENT IS RESTING QUIETLY AT THIS TIME.
--- NOTE | 2019-03-19 11:36 | NUR ---
TOLERATE THE DIET OFFERED AND NO COMPLAINTS.
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
--- NOTE | 2019-03-19 12:03 | NUR ---
1. Recommend continuing CCHO diet. 2. Recommend Zenon BID for wound healing. Discussed with FRANK Knutson.
[2019-03-19 13:15] VITALS: BP 95/57
--- NOTE | 2019-03-19 13:33 | NUR ---
RESTING QUIETLY AT THIS TIME. NO INDICATION OF DISTRESS.
--- NOTE | 2019-03-19 16:43 | NUR ---
PATIENT TOLERATED OOB ON HIS OWN AND CHANGES HIS OWN COLOSTOMY BAG AND EMPTIES HIS OWN URINE NEEDED. HE HAS NO COPLAINTS OF PAIN AT THIS ITME. HE HAS BEEN GIVEN ANTIBIOTICS AND NO ADVERSE REACTION NOTED.
[2019-03-19 17:15] VITALS: BP 90/67
--- NOTE | 2019-03-19 18:08 | NUR ---
WANTS ANOTHER MEAL TRAY. DIETART TO BRING. STILL NEED TO CHANGE THE DRESSING OT EH WOUNDS ON THE BILATERAL BUTTOCKS. PATIENT IS AWARE AND WILL DO POST DINNER. PATIENT STATE HE HAS BEEN SO TIRED ALL DAY AND WANTS TO EAT AND SLEEP.
--- NOTE | 2019-03-19 19:16 | NUR ---
CHANGED DRESSING TO THE BILATEARL BUTTOCKS. BOTH CLEANSE WITH THE WOUND SPRAY THEN APPLIED THERA HONEY AND [employer] FOR EXTRA CUSSION PER THE PATIENT REQUEST AND APPLIED [facility]ESS[facility].
--- NOTE | 2019-03-19 20:03 | NUR ---
Pt. received from day shift, currently resting in bed sitting up. Pt. is a/o x3, able to make needs known, able to follow commands, no c/o h/a. Pt. is a paraplegic, but is able to lift himself in bed and is able to position self in wheel chair. Pt. does have a suprapubic catheter draining to gravity, colostomy bag that pt. is able to empty and is clean and in tact at this time. Pt. dressings were examined upon shift change, as per day shift was just changed. Pt. dressings dry and in tact on buttocks. Otherwise, Pt. stable, no c/o chest pain, SOB, pain, or s/o discomfort or distress. Pt. safety in check, w/ call light placed within reach, pt. educated on when and how to use call light system, bed set at lowest position, will continue to monitor pt.
[2019-03-19 22:36] VITALS: BP 114/79
--- NOTE | 2019-03-20 00:01 | NUR ---
Pt. IV was taken on out LFA d/t infiltration and pt. stated that he pulled himself up, that tugged on the IV. Pt. received new IV site on the RFA, but pt. states that IVF was started, it burned and hurt and asked for it to be taken out. Educated pt. that when IV is started sometimes it can feel sore and that's normal. Pt. verbalized understanding, but still requests that new IV be put in. Will attempt for a new IV at this time.
--- NOTE | 2019-03-20 00:41 | NUR ---
Pt. requesting to wait until room and body heats up to start new IV. Will continue to monitor and endorse to next shift RN.
--- NOTE | 2019-03-20 04:10 | NUR ---
Pt. 2nd IV on RFA infiltrated at this time. New IV site on RFA also, dressing in tact, good back flow, will continue to monitor.
[2019-03-20 04:59] LABS: BASOPHIL % 0.9 % (0-2)
[2019-03-20 05:00] LABS: PLATELET COUNT 594 x10^3mcL (130-400); RED CELL DISTRIBUTION WIDTH 22.4 % (11.5-14.5)
[2019-03-20 05:28] LABS: rbc morphology (normal/abnorm) ABNORMAL (NORMAL)
[2019-03-20 05:33] LABS: CARBON DIOXIDE 28.9 mmol/L (21-32); CHLORIDE SERUM 103 mmol/L (98-107); POTASSIUM SERUM 4.3 mmol/L (3.5-5.1); SODIUM SERUM 137 mmol/L (136-145)
[2019-03-20 05:34] LABS: CALCIUM 8.2 mg/dL (8.5-10.1); CREATININE SERUM 0.5 mg/dL (0.7-1.3); GFR1 > 60 mL/min; GLUCOSE SERUM 109 mg/dL (74-106)
--- NOTE | 2019-03-20 05:35 | NUR ---
Pt. awake until 2 or 3 am d/t IV infiltrating. Pt. has no c/o chest pain, sob, or s/o discomfort. Pt. IV site at this time is on RFA 22 g, and IV fluids are running with dose of vanco running slower as per pt. request because it glynn when it runs through his vein. Will continue to monitor pt. and endorse to next shift RN.
[2019-03-20 06:02] VITALS: BP 100/53
--- NOTE | 2019-03-20 08:00 | NUR ---
RECEIVED PATIENT ALERT AND ORIENTED TIMES FOUR. PATIENT IS A PARAPLEGIC BUT A VERY ACTIVE AND SELF MOTIVATED ON HIS OWN CARE. HAS BEEN WITH CLEAR BREATH SOUNDS AND THE DRESSING OT HE BUTTOCKS INTACT. COLOSTOMY PRODUCING AND THE PATIENT AHS A SUPRA PUBIC WITH CLOUDY OUTPUT. HE HAS BEEN WTIH IV FLUIDS BYUT HAS HAD TROUBLE KEEPING THE IV DUE TO INFITRATES OVER NIGHT. PATIENT HAS VITALS AT THIS TIME AT 97.8, 85, 19, 100/53, 96%. PATIENT AHS NOTED LABS OF THE H AHD OF 10.5/314, GLUCOSE AT 109, AND THE VANCO TROUGH IS AT 15.5.
[2019-03-20 08:56] VITALS: BP 93/55
--- NOTE | 2019-03-20 11:04 | NUR ---
REQUESTED A SECOND TRAY. PATIENT TOOK HIS MEDICATIONS BUT REFUSED THE BACLOFEN AND THE COLACE AT THIS TIME. PATIENT HAS BEEN RUNNING HIS IV A LITTLE SLOWER DUE TO THE SENSITIVITY OF THE SITES.PATIENT WANTS TO BE UNHOOKED FORM IV TO GET OFF AND TO GET TO HIS CHAIR AND THE RESTROOM OF WHICH HS EIS ALMOST COMPLETELY INDEPENDNANT. WILL CONTINEU THE PRESENT ANTIBIOTIC WHEN HE COMES BACK TO BED POST HIS ADLS.
[2019-03-20 12:53] VITALS: BP 110/70
[2019-03-20 17:54] VITALS: BP 102/68
--- NOTE | 2019-03-20 20:07 | NUR ---
RECEIVED PATIENT IN BED AWAKE, ALERT AND ORIENTED WITH NO SIGN OF DISTRESS. BREATHING EASYA ND NONLABOR. COLOSTOMY BAG NEWLY CHANGED BY PATIENT HIMSELF. SUPRA PUBIC CATH INTACT WITH SMALL AMOUNT OF YELLOW OUTPUT. DRESSING TO BUTTOCKS CDI CHANGED BY AM SHIFT RN TODAY. IV TO RFA INTACT AND INFUSING WELL. WILL CONTINUE TO MONITOR. CALL LIGHT WITHIN REACH.
[2019-03-20 21:02] VITALS: BP 127/74
--- NOTE | 2019-03-21 00:30 | NUR ---
DRESSING CHANGED TO BUTTOCKS, PHOTO TAKEN. WILL CONTINUE TO MONITOR.
--- NOTE | 2019-03-21 01:40 | NUR ---
STILL AWAKE REPOSITIONED FOR COMFOT. WILL CONTINUE TO MONITOR.
--- NOTE | 2019-03-21 05:23 | NUR ---
SLEPT AT LONG INTERVALS, ALL NEEDS ATTENDED. WOUND DRESSING CHANGED AND PHOTO TAKEN.
[2019-03-21 05:52] VITALS: BP 103/64
--- NOTE | 2019-03-21 07:30 | NUR ---
PT IS AAOX4. NORMAL S1S2 NOTED. RESP EVEN AND UNLABORED. LUNG SOUNDS CTA. ON R/A. PT HAS RFA IV CATH WITH FLUIDS RUNNING. SITE WNL. COVERED WITH CDI DRESSING. PT HAS L AND R BUTTOCK PRESSURE ULCERS COVERED WITH DRESSING, MODERATE DRAINAGE NOTED. PT HAS LOWER L ABDOMEN COLOSTOMY WITH BROWN LIQUID STOOL, SITE WNL. PT HAS SUPRAPUBIC URINARY CATH TO R LOWER ABDOMEN/GROIN. SITE WNL. COVERED WITH GAUZE DRESSING. IV CATH TO RFA, SITE WNL. COVERED WITH CDI DRESSING. PT ON AIR MATRESS. PT TAUGHT TO TURN AND REPOSITION SELF FREQUENTLY. CALL LIGHT WITHIN REACH. BED IN LOWEST POSITION.
[2019-03-21 08:49] VITALS: BP 109/74
--- NOTE | 2019-03-21 09:00 | NUR ---
SCHEDULED MEDS GIVEN AND TOLERATED WELL. B/P 109/73, HR 108. PT DENIES PAIN AT THIS TIME. CONTACT PRECAUTIONS MAINTAINED. CALL LIGHT WITHIN REACH.
--- NOTE | 2019-03-21 12:28 | NUR ---
SCHEDULED MED GIVEN AND TOLERATED WELL. PT DENIES PAIN AND DISCOMFORT. PT HAS BEEN TURNING AND REPOSITIONING SELF FREQUENTLY AND LAYING SIDE TO SIDE AND NOT ON BACK. PT GIVEN NEW COLOSTOMY BAG TO REPLACE OLD. PT STATED HE WILL DO THE PROCESS HIMSELF. CALL LIGHT WITHIN REACH. BED IN LOWEST POSITION.
[2019-03-21 13:01] VITALS: BP 97/63
--- NOTE | 2019-03-21 13:45 | NUR ---
IV CATH TO RFA PULLED OUT WITH CATH INTACT. SITE WNL. COVERED WITH GAUZE AND BANDAID. NO S/S OF INFECTION OR INFILTRATION. NEW IV CATH 22G STARTED TO L UPPER ARM, COVERED WITH CDI OCCLUSIVE DRESSING. SITE WNL. PT TOLERATED PROCEDURE WELL. CALL LIGHT WITHIN REACH. BED IN LOWEST POSITION.
--- NOTE | 2019-03-21 16:00 | NUR ---
WOUND CARE PERFORMED. L ISCUIM AND R TROCHANTER DRESSINGS REMOVED, BOTH AREAS CLEANSED WITH WOUND SUPERVISOR TYPE DISK QUALITY CONTROL, THERAHONEY DRESSING PLACED IN WOUND, 4X4 PLACED FOR DRAINAGE AND CDI ISLAND DRESSINGS APPLIED. PT TOLERATED PROCEDURE WELL. CALL LIGHT WITHIN REACH. BED IN LOWEST POSITION.
--- NOTE | 2019-03-21 16:12 | NUR ---
KIM NASH VICE PRESIDENT RESEARCH MADE AWARE PT HAS NO LABS ORDERED FOR TODAY OR TOMMORROW. KIM STATED THAT IS FINE. NO NEW ORDERS AT THIS TIME. PT MADE AWARE.
[2019-03-21 16:20] VITALS: BP 93/56
--- NOTE | 2019-03-21 18:18 | NUR ---
PT IV CATH TO L UPPER ARM SENSING PRESSURE AND STOPPING FREQUENTLY. IV CATH REMOVED FROM L UPPER ARM PER PT'S REQUEST. NEW IV CATH TO LFA STARTED ON FIRST ATTEMPT. SITE COVERED WITH CDI DRESSING. WNL. PT TOLERATED PROCEDURE WELL. PT IS AAOX4. DENIES PAIN AND DISCOMFORT AT THIS TIME. NO DISTRESS NOTED. PT CHANGED COLOSTOMY 2 X TODAY INDEPENDENTLY. SITE WNL. PT HAS SUPRA PUBIC CATH IN PLACE, PATENT. 600CC URINE REMOVED FROM BAG AT END OF SHIFT. WILL ENDORSE ALL CARE TO SEDA MONTALVO.
--- NOTE | 2019-03-21 19:10 | NUR ---
PT RECEIVED A/O X4, ABLE TO MAKE NEEDS KNOWN. MED-SURG, PT DENIES ANY CP/PRESSURE. PULSES PALPABLE, NO EDEMA PRESENT. BREATHING IS EVEN AND UNLABORED ON RA, NO RESP DISTRESS NOTED. ABD SOFT AND NONDISTENDED, COLOSTOMY IN PLACE TO ABD, PINK STOMA NOTED, PT ABLE TO CHANGE COLOSTOMY INDEPENDENTLY AND LAST CHANGED IT TODAY. SUPBRAPUBIC CATH IN PLACE DRAINING TO GRAVITY, YELLOW URINE NOTED. GENERALIZED WEAKNESS, PT HAS HX OF PARAPLEGIA, WHEELCHAIR AT BASELINE/BEDSIDE, ON AIR MATTRESS. DAILY WOUND CARE DONE BY AM NURSE. DRSGs IN PLACE TO RIGHT TROCHANTER AND LEFT HIP, CDI. PT DENIES ANY PAIN AT THIS TIME. IV TO LFA, PATENT AND INTACT. NO ACUTE DISTRESS NOTED. BED IN LOWEST SETTING, SIDE RAILS UP X2, CALL LIGHT WITHIN REACH. WILL CONT TO MONITOR.
[2019-03-21 20:15] VITALS: BP 111/78
--- NOTE | 2019-03-22 01:27 | NUR ---
PT RESTING IN BED WITH EYES CLOSED, BUT EASILY AROUSABLE. BREATHING IS EVEN AND UNLABORED, NO RESP DISTRESS NOTED. PT DENIES HAVING ANY PAIN AT THIS TIME. IVF ABX INFUSING WELL, SITE WNL. NO ACUTE DISTRESS OBSERVED. CALL LIGHT WITHIN REACH. WILL CONT TO MONITOR.
[2019-03-22 05:38] VITALS: BP 108/65
--- NOTE | 2019-03-22 06:21 | NUR ---
PT SLEPT AT INTERVALS THROUGHOUT THE EVENING. BREATHING IS EVEN AND UNLABORED, NO RESP DISTRESS NOTED. PT DENIES HAVING ANY PAIN AT THIS TIME. ATTEMPTED TO DO DAILY DRSG CHANGE AT THIS TIME, PT REFUSED AND STATES, "I JUST WANT TO GET SOME SLEEP RIGHT NOW." WOUND CARE SUPPLIES AT BEDSIDE. SUPRAPUBIC CATH DRAINING TO GRAVITY. COLOSTOMY IN PLACE, PINK STOMA NOTED. IV TO LFA PATENT AND INTACT. NO ACUTE CHANGES ENCOUNTERED DURING SHIFT. ALL NEEDS MET AND ANTICIPATED. CALL LIGHT WITHIN REACH. WILL ENDORSE CARE TO AM NURSE.
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
[2019-03-22 08:24] VITALS: BP 102/64
--- NOTE | 2019-03-22 09:10 | NUR ---
PO MEDICATIONS GIVEN. BACLOFEN REFUSED. VANCOCIN STARTED. PATIENT COMPLAINED OF PAIN AT IV SITE. NO REDNESS OR INFILTRATION. WILL LOOK FOR ANOTHER IV SITE.
--- NOTE | 2019-03-22 09:30 | NUR ---
IV REINSERTED AT RFA. VANCOCIN INFUSING WELL AT 166CC/HR. NO REDNESS OR INFILTRATION TO RFA.
[2019-03-22 12:02] VITALS: BP 99/70
--- NOTE | 2019-03-22 12:14 | NUR ---
MAXIPIME INFUSING WELL AT 100CC/HR TO RFA. LACTINEX 2 TABS PO TAKEN.
--- NOTE | 2019-03-22 12:20 | NUR ---
RT CALLED REGARDING PATIENT'S PERSISTENT SOB. PER RT, SHE WILL COME UP FOR TREATMENT.
--- NOTE | 2019-03-22 12:40 | NUR ---
WOUND DRESSING AT R AND L TROCHANTER WOUND DONE WITH WOUND CLEANSING SOLUTION AND Z GUARD, PACKED WITH THERAHONEY AND 4X4 INCH GAUZE, COVERED WITH OPTIIFOAM DRESSING . CALL LIGHT WITHIN REACH. BED AT LOWEST POSITION.
[2019-03-22 16:09] VITALS: BP 93/55
--- NOTE | 2019-03-22 16:36 | NUR ---
LACTINEX PO GIVEN
--- NOTE | 2019-03-22 19:05 | NUR ---
PT RECEIVED A/O X4, ABLE TO MAKE NEEDS KNOWN. MED-SURG, PT DENIES ANY CP/PRESSURE. PULSES PALPABLE, NO EDEMA PRESENT. BREATHING IS EVEN AND UNLABORED ON RA, NO RESP DISTRESS NOTED. ABD SOFT AND NONDISTENDED, COLOSTOMY IN PLACE TO ABD, PINK STOMA NOTED, PT ABLE TO CHANGE COLOSTOMY INDEPENDENTLY. SUPBRAPUBIC CATH IN PLACE DRAINING TO GRAVITY, YELLOW URINE NOTED. GENERALIZED WEAKNESS, PT HAS HX OF PARAPLEGIA, WHEELCHAIR AT BASELINE/BEDSIDE, ON AIR MATTRESS. DAILY WOUND CARE COMPLETED BY AM NURSE. DRSGs IN PLACE TO RIGHT TROCHANTER AND LEFT HIP, CDI. PT DENIES ANY PAIN AT THIS TIME. IV TO RFA, PATENT AND INTACT. NO ACUTE DISTRESS NOTED. BED IN LOWEST SETTING, SIDE RAILS UP X2, CALL LIGHT WITHIN REACH. WILL CONT TO MONITOR.
[2019-03-22 20:27] VITALS: BP 110/72
[2019-03-23 05:55] VITALS: BP 100/57
--- NOTE | 2019-03-23 06:10 | NUR ---
PT SLEPT AT INTERVALS THROUGHOUT THE EVENING. BREATHING IS EVEN AND UNLABORED, NO RESP DISTRESS NOTED. PT DENIES HAVING ANY PAIN AT THIS TIME. SUPRAPUBIC CATH DRAINING TO GRAVITY. COLOSTOMY IN PLACE, PINK STOMA NOTED. IV TO RFA, PATENT AND INTACT. NO ACUTE CHANGES ENCOUNTERED DURING SHIFT. ALL NEEDS MET AND ANTICIPATED. CALL LIGHT WITHIN REACH. WILL ENDORSE CARE TO AM NURSE.
--- NOTE | 2019-03-23 06:48 | NUR ---
DAILY WOUND CARE DRSG CHANGE COMPLETED TO LEFT ISCHIUM AND RIGHT TROCHANTER. LEFT ISCHIUM CLEANSED WITH WOUND CARE SOLUTION, PATTED DRY AND PACKED WITH THERAHONEY DRSG SHEET, Z-GUARD APPLIED TO ANNELIESE-WOUND AND COVERED WITH DRY DRSG, ABD DRSG PLACED PER PT'S REQUEST FOR "MORE CUSHION." RIGHT TROCANTER CLEANSED WITH WOUND CARE SOLUTION, PATTED DRY AND PACKED WITH THERAHONEY DRSG SHEET TO WOUND BED, DRY DRSG PLACED. PT TOLERATED WELL. NO ACUTE DISTRESS NOTED. WILL ENDORSE CARE TO AM NURSE.
[2019-03-23 06:51] LABS: CALCIUM 8.3 mg/dL (8.5-10.1); CARBON DIOXIDE 29.5 mmol/L (21-32); CHLORIDE SERUM 104 mmol/L (98-107); CREATININE SERUM 0.6 mg/dL (0.7-1.3); GFR1 > 60 mL/min; GLUCOSE SERUM 87 mg/dL (74-106); SODIUM SERUM 139 mmol/L (136-145)
--- NOTE | 2019-03-23 07:25 | NUR ---
PT IN NO ACUTE DISTRESS. CONTINUITY OF CARE ENDORSED TO FERNANDO MONTALVO. ALL QUESTIONS AND CONCERNS.
--- NOTE | 2019-03-23 08:00 | NUR ---
RECEIVED PATIENT WITH CLEAR BREATH SOUNDS AND CONTINUED ON IV ANTIBIOTICS ORDERED. PATEINT S BEEN CLEARED OF THE ISOLATION AND HAS BEEN CONTINUED TO CARE FOR THIS COLOSTOMY AND SUPRAPUBIC CATH INDICATED. PATIENT DENIES PAIN AND HAD BEEN EATTING ALOT. VITALS AT THIS TIME AT 97.5, 101, 18, 100/57, 98% ON ROOMA IR. [place] HAS BEEN AWAITING PLACEMENT AND SO FAR NONE AVAILABLE FOR BEDS. THE WOUNDS TO THE BILATERAL BUTTOCKS WERE CHANGED THIS AM AND PICTURES TAKEN OF THE SITES AND THE SITES APPEAR THE SAME TO THE SINUS TRACT SITE ON ZEKE LEFT SIDE AND THE OPPOSING SITE IS CLEAN AND MINIMAL CHANGES SINCE THE PRIOR PICTURES. CONTINUED ON THE THERA HONEY PACKING AND PROTECTIVE DRESSING. WILL CONTINUE TO MONTIOR AND NO DISTRESS NOTED AT THIS TIME. REFUSED THE BACLOFEN AND THE COLACE HE HAS DAILY. STATES HE DOES NOT TAKE THE BACLOFEN ANYMORE.
[2019-03-23 08:25] VITALS: BP 136/81
--- NOTE | 2019-03-23 11:23 | NUR ---
1. Recommend continuing CCHO diet with Zenon BID
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
[2019-03-23 11:26] LABS: PLATELET COUNT 550 x10^3mcL (130-400)
--- NOTE | 2019-03-23 12:35 | NUR ---
PATIENT WANTS TO GO HOME AND THEN GO TO A SNF FROM THERE. PATIENT IS ASKING STAFF IF THAT IS POSSIBLE. PUBLIC HEALTH SOCIAL WORKER TO SEE PATIENT AND HE WILL ASK HER AT THAT TIME. NO ORDERS FOR DISCHARGE YET NOTED.
[2019-03-23 12:49] VITALS: BP 103/62
--- NOTE | 2019-03-23 16:01 | NUR ---
PATIENT WANTS TO GO HOME AND WANTS TO GO HOME AND THEN GO TO A SNF FROM THERE. PATIENT BELIEVES HE CAN DO THAT BUT PER THE D[employer] M[employer] OPERATOR IT DOES NOT WORK THAT WAY. PATIENT HEPLOCKED AND RECEIVED IS DOSE OF ANTIBIOTIC. PATIENT HAS BEEN GETTING HIMSELF IN AND OUT OF BED. HE TOLERATES WELL. HE DENIES ANY PAIN AND HE HAS BEEN WAITING FOR PLACEMENT BUT SO FAR NO BEDS AVAILABLE AT THIS TIME.
--- NOTE | 2019-03-23 17:10 | NUR ---
PATIENT NOT IN THE ROOM AND STAFF WENT TO FIND HIM. HE HAS BEEN IN THE HALLWAY AND WAS SEEN BY STAFF. HE HAD APPARENTLY LEFT THE FLOOR AND WAS FOUND IN THE LOBBY AND PER THE SECURITY HAD LEFT THE LOT. 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 PATIENT HAD ENVELOPES IN HIS HAND. PATIENT STATES HE HAS NO INTENTION OF LEAVING AND NEEDED TO SEE TO BUSINESS. PATIENT WAS ADVISED OF THE POLICY AND THE SUPERVISIOR WAS ADVISED OF THE SITUATION. THE SUPERVISIOR DIRRECTED THE CHARGE AND STAFF TO BRING THE PATIENT BACK TO THE PATIENT PRESENT ROOM. PATIENT AGAIN INDICATED HE DID NOT MEAN TO MAKE ANY PROBLEMS.
[2019-03-23 17:44] VITALS: BP 126/80
--- NOTE | 2019-03-23 19:35 | NUR ---
RECEIVED PT SITTING ON HIS WHEELCHAIR. HE IS ALERT,ORIENTED X4. NO SOB ON ROOM AIR. HE HAS NO C/O PAIN. W/ SUPRAPUBI CATH IN PLACE AND PATENT. DRESSINGS TO LT AND RT BUTTOCKS INTACT. W/ IVF INFUSING VIA RTFA. CALL LIGHT W/IN REACH.
[2019-03-23 21:19] VITALS: BP 128/88
--- NOTE | 2019-03-23 22:26 | NUR ---
DRESSINGS TO ULCERS ON BILAT BUTTOCKS CHANGED PER PT'S REQUEST. MOD AMOUNT OF DRAINAGE NOTED. WOUNDS WERE CLEANED W/ WOUND CARE CARMELO'N,WAS PAT DRY , PACKED W/ THERAHONEY AND COVERED W/ DRY DRESSING.
--- NOTE | 2019-03-24 05:43 | NUR ---
PT REFUSED TO HAVE VITAL SIGNS TAKEN AT THIS TIME.
[2019-03-24 06:29] LABS: BASOPHIL % 0.6 % (0-2)
[2019-03-24 06:39] LABS: CALCIUM 8.9 mg/dL (8.5-10.1); CARBON DIOXIDE 31.7 mmol/L (21-32); CHLORIDE SERUM 103 mmol/L (98-107); CREATININE SERUM 0.6 mg/dL (0.7-1.3); GFR1 > 60 mL/min; GLUCOSE SERUM 81 mg/dL (74-106); POTASSIUM SERUM 4.1 mmol/L (3.5-5.1); SODIUM SERUM 138 mmol/L (136-145)
[2019-03-24 06:46] LABS: RED CELL DISTRIBUTION WIDTH 22.9 % (11.5-14.5)
[2019-03-24 06:49] LABS: PLATELET COUNT 602 x10^3mcL (130-400)
--- NOTE | 2019-03-24 06:50 | NUR ---
INFORMED DR. YOUNG REGARDING PLATELET OF 602.
--- NOTE | 2019-03-24 06:51 | NUR ---
PT SLEPT AT LONG INTERVALS. HE HAD NO C/O PAIN. EMPTIED 1000 CC URINE FROM CROCKER BAG. PT HAD NO BM THIS SHIFT. IVF NS INFUSING AT 70 CC/HR VIA RTFA.ALL NEEDS ATTENDED TO.
[2019-03-24 09:11] VITALS: BP 100/62
--- NOTE | 2019-03-24 11:28 | NUR ---
PATIENT RECEIVED ASLEEP BUT ARROUSABLE. PATIENT HAS CLEAR BREATH SOUNDS AN SIS ABLE TO CARE FOR HIS COLOSTOMY AND THE SUPRAPUBIC CATH WELL. HE HAS DRESSING INTACT TO THE BILATERAL SACRAL AND NOTED PREVIOUS HX OF SURGERY FRO DEBRIDEMENT OF THE RIGHT HIP DECUBITUS. PATIENT YOVANI ACTIVE BOWEL SOUNDS AND TOELRATED DIET AND FLUIDS WELL. HE HAS BEEN OOB AND BACK AND FORTH TO THE RESTROOM FOR HIS ADLS IS FULLY DRESSED. HE HAS BEEN ADVISED OF THE NEED TO STAY WITHIN THE HOSPITAL AND NOT IN THE [place] OR OFF THE FLOOR. PATIENT HAS GONE OFF THE FLOOR YESTERDAY AND WAS APPARENTLY OFF THE PROPERTY PER SECURITY. PATIENT DENIES THIS THOUGH. 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 HE HAS BEEN REMINDED TO LEAVE MEANS HE LEFT AMA AND WILL NEED TO BE READMITTED TO THE FLOOR AND START IN THE EMERGENCY ROOM HE DID PRIOR TO THIS ADMISSION. PATIENT HAS VITALS AT THIST TREVOR AT 97.5, 70, 18, 100/62, 100% ON ROOM AIR. PATIENT HAS BEEN CHANGING HIS OWN COLOSTOMY BAG AND DOES SO DAILY. HE IS VERY INDEPENDANT BUT HAD A NEED FOR ASSISTED LIVING ARARNGEMENT DUE TO THE PARAPLEGIA. CONTINUED TO REQUEST ALOT OF FOOD AND DRINK OVER THE AMOUNT GIVEN. STAFF ATTEMPTING TO ACCOMEDATE HIM WITH THE SUPPLIES AVAILABLE. NO COMPLAINTS OF PAIN AT THIS TIME AND NO FEVER OR ANY SIGNS OF RESPIRATORY DISTRESS. WILL CONTINUE TO MONITOR.
[2019-03-24 12:34] VITALS: BP 144/77
--- NOTE | 2019-03-24 15:00 | NUR ---
PATIENT CONTINUED OFF THE IV HE PREFERS AND HAS NOT SO FAR LEFT THE ROOM FOR ANY LENGTH OF TIME. PATIENT DENIES PAIN AND HAS CHANGED HIS COLOSTOMY BAG INDICATED. WILL CONTINUE TO MONITOR INDICATED.
[2019-03-24 17:03] VITALS: BP 110/73
--- NOTE | 2019-03-24 19:20 | NUR ---
RECEIVED PT SITTING IN BED. HE IS ALERT,ORIENTED X4. PT IS PARAPLEGIC BUT ABLE TO TRANSFER IN AND OUT OF BED BY HIMSELF. NO SOB NOTED. HE HAS NO C/O PAIN. DRESSING TO BUTTOCKS INTACT. W/ IVF NS AT 70 CC/HR VIA RTFA. CALL LIGHT W/IN REACH.
--- NOTE | 2019-03-24 21:00 | NUR ---
PT TALKING TO HIS PARENTS AT BEDSIDE.
[2019-03-24 21:06] VITALS: BP 117/67
--- NOTE | 2019-03-25 01:15 | NUR ---
DRESSING CHANGE DONE PER PT'S REQUEST. ULCER TO LT ISCHIUM AND RT THROCANTER CLEANSED W/ WOUND CARE SOLUTION, PATTED DRY, PACKED W/ Catherine BARBER GUARD APPLIED TO PERIWOUND BED, COVERED W/ DRY GAUZE AND ISLAND WOUND DRESSING.
--- NOTE | 2019-03-25 05:16 | NUR ---
PT SLEPT FAIRLY. HE HAD NO C/O PAIN. NO RESP. DISTRESS. PT WANTS TO DO THINGS BY HIMSELF LIKE EMPTYING CROCKER BAG AND COLOSTOMY AND ALSO GETTING IN AND OUT OF BED TO HIS WHEELCHAIR. DRESSING TO ULCERS ON LT ISCHIUM AND RT THROCANTER CHANGED. IVF NS INFUSING AT 70 CC/HR VIA RTFA.
[2019-03-25 05:47] VITALS: BP 114/80
[2019-03-25 07:48] VITALS: BP 126/79
--- NOTE | 2019-03-25 07:50 | NUR ---
RECEIVED PATIENT FROM SELVIN [place]. PATIENT IN BED AT THIS TIME, NO COMPLAINTS. SPOKE WITH PATIENT ABOUT PLAN OF CARE FOR TODAY INCLUDING MEDICATIONS AND TO CHECK ON HIS WOUNDS, PATIENT AGREES. WILL WAIT FOR TAB MACHINE OPERATOR PHIL TO COME SPEAK WITH PATIENT, PATIENT IS AWARE TO BE TRANSFERRED TO SNF. CALL LIGHT IN REACH AT THIS TIME.
[2019-03-25 11:30] VITALS: BP 116/81
--- NOTE | 2019-03-25 14:16 | NUR ---
PATIENT IN WHEELCHAIR IN ROOM, NO COMPLAINTS AT THIS TIME. PATIENT SPOKE WITH BAND CUTTER DEL ABOUT DISCHARGE PLANS AND PLACEMENT. CALL LIGHT IN REACH.
[2019-03-25 16:07] VITALS: BP 99/65
--- NOTE | 2019-03-25 18:10 | NUR ---
PATIENT IN BED AT THIS TIME, EATING AND TOLERATING DINNER TRAY. PATIENT STILL AWARE THAT HE IS LIKELY TO BE TRANSFERRED TO SNF. WILL ENDORSE TO ONCOMING NURSE. CALL LIGHT IN REACH.
--- NOTE | 2019-03-25 19:00 | NUR ---
RECEIVED REPORT FROM ASHU MONTALVO. PT IS AAOX4 AND DENIES FAYE OR DIZZINESS AT THIS TIME. PT HAS HX OF PARAPLEGIA. PT IS MED-SURG AND DENIES CP OR PRESSURE AT THIS TIME. PT PULSES PALPABLE AND CAP REFILL <3 SEC. PT LUNG SOUNDS CTA ON RA. PT DENIES ANY SOB OR RESPRIRATORY DISTRESS AT THIS TIME. PT ABD SOFT AND NONDISTENDED. PT BOWEL SOUNDS ACTIVE X4. PT HAS COLOSTOMY TO LLQ. PT HAS SUPRAPUBIC CROCKER CATH DRAINING YELLOW URINE. PT HAS GENERALIZED WEAKNESS AND TO BLE. PT HAS RLE CONTRACTURE. PT IS ON AIR MATTRESS. PT USES WHEELCHAIR. PT HAS PRESSURE ULCERS TO LEFT AND RIGHT BUTTOCKS, DRESSINGS CDI. PT IV PATENT AND INTACT. CALL LIGHT WITHIN REACH. BED IN LOWEST POSITION. SIDE RAILS X2 UP. WILL CONTINUE TO MONITOR.
[2019-03-25 21:31] VITALS: BP 117/75
--- NOTE | 2019-03-25 22:00 | NUR ---
PT DRESSING TO LEFT BUTTOCKS CHANGED DUE TO DRAINAGE. PT TOLERATED DRESSING CHANGE WELL. DRESSING TO RIGHT BUTTOCKS STILL CDI. WILL CONTINUE TO MONITOR.
--- NOTE | 2019-03-25 23:25 | NUR ---
PT AWAKE AT THIS TIME WATCHING TV. NO ACUTE DISTRESS NOTED. CALL LIGHT WITHIN REACH. BED IN LOWEST POSITION. SIDE RAILS X2 UP. WILL CONTINUE TO MONITOR.
--- NOTE | 2019-03-26 03:02 | NUR ---
PT SLEEPING. PT BREATHING EVEN AND UNLABORED. NO ACUTE DISTRESS NOTED. CALL LIGHT WITHIN REACH. BED IN LOWEST POSITION. SIDE RAILS X2 UP. WILL CONTINUE TO MONITOR.
--- NOTE | 2019-03-26 06:05 | NUR ---
PT SLEPT INTERMITTENTLY THROUGHOUT THE NIGHT. PT COMPLIED WITH NURSING CARE THROUGHOUT THE SHIFT. NO ACUTE DISTRESS NOTED DURING THE SHIFT. COMFORT AND SAFETY MEASURES MAINTAINED. ALL NEEDS AND CONCERNS ADDRESSED. WILL ENDORSE CARE TO DAY SHIFT NURSE. WILL CONTINUE TO MONITOR.
[2019-03-26 06:14] VITALS: BP 108/78
[2019-03-26 06:34] LABS: BASOPHIL % 0.6 % (0-2)
[2019-03-26 07:00] LABS: RED CELL DISTRIBUTION WIDTH 23.5 % (11.5-14.5)
[2019-03-26 07:16] LABS: CARBON DIOXIDE 29.5 mmol/L (21-32); CHLORIDE SERUM 103 mmol/L (98-107); CREATININE SERUM 0.5 mg/dL (0.7-1.3); GFR1 > 60 mL/min; GLUCOSE SERUM 100 mg/dL (74-106); POTASSIUM SERUM 4.1 mmol/L (3.5-5.1); SODIUM SERUM 137 mmol/L (136-145)
[2019-03-26 07:17] LABS: CALCIUM 8.4 mg/dL (8.5-10.1)
--- NOTE | 2019-03-26 07:25 | NUR ---
ENDORSED CARE TO SHARI MONTALVO. ALL QUESTIONS AND CONCERNS ADDRESSED.
[2019-03-26 07:38] LABS: PLATELET COUNT 516 x10^3mcL (130-400)
[2019-03-26 09:03] VITALS: BP 94/57
--- NOTE | 2019-03-26 10:08 | NUR ---
SLEEPING BUT EASILY AROUSABLE TO SPEECH. OX4. DENIES PAIN; NO SOB AT RA. LLQ ABD COLOSTOMY IS INTACT AND PATENT; SUPRAPUBIC CATH DRAINING CLEAR YELLOW URINE BY GRAVITY. DSG TO MAR BUTTOCKS CDI. SL ON THE LFA INTACT; IVF OFF AT THIS TIME. FALL AND SAFETY PRECAUTION REINFORCED; NSG ASSESSMENT DONE; WILL CONTINUE TO MONITOR STATUS.
[2019-03-26 13:06] VITALS: BP 119/66
--- NOTE | 2019-03-26 14:19 | NUR ---
NO NEW ACUTE CHANGES IN STATUS. PT PERFORMED COLOSTOMY CARE BY HIMSELF. WILL CONTINUE TO MONITOR STATUS.
[2019-03-26 17:18] VITALS: BP 110/75
--- NOTE | 2019-03-26 17:57 | NUR ---
PT IS UP IN HIS WHEELCHAIR INDEPENDENT AND DESIRED. PT REFUSED WOUND DSG TO BE CHANGED; NO NEW ACUTE CHANGES IN STATUS. NOT IN ANY DISTRESS; WILL CONTINUE TO MONITOR STATUS.
--- NOTE | 2019-03-26 18:47 | NUR ---
PT CALLED TO REPORT THAT IVF SITE IS LEAKING; LFA IVF STOPPED, CATH TAKEN OUT AND INTACT.
--- NOTE | 2019-03-26 19:35 | NUR ---
RECEIVED PT FROM AM NURSE, PT ON WHEELCHAIR. PT AAOX4, ABLE TO FOLLOW COMMANDS AND MAKE NEEDS KNOWN. MED-SURG, DENIES CP/PRESSURE AT THIS TIME. PALPABLE PULSES TO ALL EXTREMETIES, TRACE EDEMA TO FEET. LUNG SOUNDS CTA, BREATHING EVEN AND UNLABORED ON RA. NO SOB NOTED. AND SOFT AND NONDISTENDED. ACTIVE BS, COLOSTOMY TO LLQ IN PLACE. PT CHANGES BAG INDEPENDENTLY. SUPRAPUBIC CATH IN PLACE, DRAINING CLEAR YELLOW URINE. PT PARAPLEGIC, WHEELCHAIR BOUND. ABLE TO TURN AND REPOSITION SELF. ON AIRMATTRESS. ULCERS TO RIGHT AND LEFT BUTTUCKS COVERED WITH DRESSING. DRESSING CDI. PT REFUSED ASSESSEMENT OR DRESSING CHANGE AT THIS TIME. NO IV ACCESS AT THIS TIME. WILL INSERT NEW IV. NO ACUTE DISTRESS NOTED. BED AT LOWEST SETTING. SIDE RAILS X2 UP. CALL LIGHT WITHING REACH. WILL CONT TO MONITOR.
[2019-03-26 21:45] VITALS: BP 107/76
--- NOTE | 2019-03-26 22:50 | NUR ---
CALLED DR GENE LEMUS SS NOTE ABOUT TODAY BEING THE LAST DAY FOR TATUM AT 1700. PER DR MILLS WILL GIVE THE 0100 DOSE AND WILL CONFIRM ORDER WITH PROJECT LEAD TOMORROW.
--- NOTE | 2019-03-26 23:21 | NUR ---
PER DR MONTES CONT WITH IV VANCOMACYN ORDERED.
--- NOTE | 2019-03-27 00:15 | NUR ---
PT AWAKE, LAYING DOWN IN BED, BREATHING EVEN AND UNLABORED ON RA. NO ACUTE DISTRESS NOTED. BED AT LOWEST SETTING. SIDE RAILS X2 UP. CALL LIGHT WITHING REACH. WILL CONT TO MONITOR.
[2019-03-27 06:33] VITALS: BP 96/59
--- NOTE | 2019-03-27 06:58 | NUR ---
PT SLEPT AT INTERVALS THROUGHOUT THE NIGHT, BREATHING EVEN AND UNLABORED ON RA. NO SIGNIFICANT CHANGES DURING SHIFT. WOUND CARE RENDERED PER ORDER. PT TOLERATED WELL. CROCKER CATH DRAINING CLEAR YELLO URINE TO GRAVITY. IV TO RFA INFUSING FLUIDS PER MAR. SITE WNL. ALL NEEDS ASSESSED AND ATTENDED TO. NO ACUTE DISTRESS NOTED. PT CHANGING COLOSTOMY BAG AT THIS TIME. SAFETY PRECAUTIONS IN PLACE. CALL LIGHT WITHING REACH. WILL ENDORSE CARE TO AM NURSE.
--- NOTE | 2019-03-27 07:30 | NUR ---
PT IS AAOX4. NORMAL S1S2 NOTED. LUNG SOUNDS CTA. ON R/A. PT IS PARAPLEGIC WITH FULL ROM TO BUA. PT HAS BLE TRACE EDEMA TO FEET. PT HAS LLQ COLOSTOMY WITH LIGHT BROWN LIQUID STOOL NOTED. SUPRAPUBIC CATH TO L LOWER ABDOMEN/GROIN AREA, PATIENT WITH CLEAR YELLOW URINE DRAINING TO GRAVITY. STAT LOCK TO R THIGH. PT NOTED WITH FISTULA TO BLADDER. PT HAS R AND L BUTTOCK PRESSURE ULCER. FLUIDS RUNNING TO RFA, SITE WNL. NO S/S OF INFECTION OR INFILTRATION NOTED. PT HAS RLE CONTRACTURE. AIR MATRESS IN PLACE. DENIES PAIN AT THIS TIME. CALL LIGHT WITHIN REACH.
[2019-03-27 08:54] VITALS: BP 120/70
--- NOTE | 2019-03-27 09:19 | NUR ---
PT UP OUT OF BED IN W/C. RESP EVEN AND UNLABORED. NO DISTRESS NOTED. SCHEDULED MEDS GIVEN AND TOLERATED WELL. CALL LIGHT WITHIN REACH.
--- NOTE | 2019-03-27 11:36 | NUR ---
SCHEDULED MED GIVEN AND TOLERATED WELL. DENIES PAIN. CALL LIGHT WITHIN REACH.
--- NOTE | 2019-03-27 12:17 | NUR ---
SCHEDULED MED GIVEN AND TOLERATED WELL. PT IN BED RESTING. CALL LIGHT WITHIN REACH. BED IN LOWEST POSITION. CALL LIGHT WITHIN REACH.
[2019-03-27 13:10] VITALS: BP 116/75
--- NOTE | 2019-03-27 15:10 | NUR ---
DRESSING CHANGE PERFORMED TO R BUTTOCK WOUND DUE TO SOILED DRESSING. DRESSING REMOVED, AREA CLEANSED WITH WOUND CARE CLEANSER, PATTED DRY, THERAHONEY SHEET APPLIED ABDOMINAL PAD APPLIED, COVERED WITH CDI ISLAND DRESSING. Z-GUARD APPLIED TO PERINEAL AREA. PT TOLERATED PROCEDURE WELL. CALL LIGHT WITHIN REACH. BED IN LOWEST POSITION.
[2019-03-27 16:26] VITALS: BP 113/61
--- NOTE | 2019-03-27 18:32 | NUR ---
PT IS AAOX4. RESP EVEN AND UNLABORED. NO DISTRESS NOTED. IV CATH TO RFA PATENT. SITE WNL. DENIES PAIN. CALL LIGHT WITHIN REACH. BED IN LOWEST POSITION. WILL ENDORSE ALL CARE TO NOC RN.
--- NOTE | 2019-03-27 19:35 | NUR ---
RECEIVED PT FROM AM NURSE, PT LAYING DOWN IN BED. PT AAOX4, ABLE TO FOLLOW COMMANDS AND MAKE NEEDS KNOWN. MED-SURG, DENIES CP/PRESSURE AT THIS TIME. PALPABLE PULSES TO ALL EXTREMETIES, TRACE EDEMA TO FEET. LUNG SOUNDS CTA, BREATHING EVEN AND UNLABORED ON RA. NO SOB NOTED. AND SOFT AND NONDISTENDED. ACTIVE BS, COLOSTOMY TO LLQ IN PLACE. PT CHANGES BAG INDEPENDENTLY. SUPRAPUBIC CATH IN PLACE, DRAINING CLEAR YELLOW URINE. PT PARAPLEGIC, WHEELCHAIR BOUND. ABLE TO TURN AND REPOSITION SELF. ON AIRMATTRESS. ULCERS TO RIGHT AND LEFT BUTTUCKS COVERED WITH DRESSING. DRESSING CDI. DRESSING CHANGE DONE TODAY. IV TO RFA INFUSING WELL. SITE WNL. NO ACUTE DISTRESS NOTED. BED AT LOWEST SETTING. SIDE RAILS X2 UP. CALL LIGHT WITHING REACH. WILL CONT TO MONITOR.
[2019-03-27 20:26] VITALS: BP 124/86
--- NOTE | 2019-03-28 01:00 | NUR ---
PT AWAKE LAYING DOWN IN BED, BREATHING EVEN AND UNLABORED ON RA. NO ACUTE DISTRESS NOTED. DRESSING CHANGE OF MAR BUTTOCKS DONE AT THIS TIME PER ORDER, PICTURES TAKEN. PT TOLERATED WELL. SAFETY PRECAUTIONS IN PLACE. CALL LIGHT WITHING REACH. WILL CONT TO MONITOR.
[2019-03-28 06:06] VITALS: BP 109/78
--- NOTE | 2019-03-28 06:31 | NUR ---
PT SLEPT AT INTERVALS THROUGHOUT THE NIGHT, BREATHING EVEN AND UNLABORED ON RA. NO SIGNIFICANT CHANGES DURING SHIFT. PT REFUSES DRESSINGS TO BE ASSESSED AT THIS TIME. ALL NEEDS ASSESSED AND ATTENDED TO. IV TO LFA INFUSING FLUIDS PER MAR. SITE WNL. NO ACUTE DISTRESS NOTED. BED AT LOWEST SETTING. SIDE RAILS X2 UP. CALL LIGHT WITHING REACH. WILL CONT TO MONITOR AND ENDORSE CARE TO AM NURSE.
--- NOTE | 2019-03-28 08:00 | NUR ---
SHIFT ASSESSMENT DONE. PATIENT A/A/OX4; PARAPLEGIC; NUMBNESS BELOW WAIST. CHAIR BOUND. NO RESP DISTRESS. ABD FLAT/SOFT. COLOSTOMY BAG LEAKING AND CHANGED BY PATIENT HIMSELF. SUPRAPUBIC CATH PATENT W/ YELLOWISH URINE OUPUT. IVF OF NS 70CC/HR. IV SITE TO LFA INTACT. NO C/O PAIN. AIR MATTRESS IN PLACE. ULCER TO BUTTOCK AREA X2 W/ DRSG D/C/I. CALL LIGHT IN REACH.
[2019-03-28 08:44] VITALS: BP 109/67
[2019-03-28 12:11] VITALS: BP 116/72
[2019-03-28 17:09] VITALS: BP 101/68
--- NOTE | 2019-03-28 18:00 | NUR ---
VANCO TR LEVEL = 14.9; PHARMACIST AWARE OF. ORDER TO CONTINUE GIVE VANCOMYCIN IVPB.
--- NOTE | 2019-03-28 18:49 | NUR ---
URINE OUTPUT VIA SUPRAPUBIC CATH 2350 CC. BM VIA COLOSTOMY WNL. CONDITION STABLE. ENDORSED CARE TO NOC NURSE.
--- NOTE | 2019-03-28 19:35 | NUR ---
RECEIVED PT RESTING IN BED, NO ACUTE DISTRESS NOTED. FAMILY AT BEDSIDE. AOX4, DENIES FAYE/DIZZINESS. PT PARALEGIC, BLE NUMBNESS. MEDSURG PT, DENIES CP. PULSES PALPABLE BILAT, TRACE EDEMA BLE. RESP EVEN AND UNLABORED ON RA, DENIES SOB. PT WITH COLOSTOMY TO LLQ, PT ABLE TO EMPTY OWN BAG, WILL ASSIST WHEN NEEDED. PT WITH SUPRAPUBIC CATH DRAINING YELLOW URINE, UA (+) MANY BACTERIA. PT USES WHEELCHAIR TO GET AROUND. PT ON AIR MATTRESS. PT WITH BILAT BUTTOCKS ULCERS, DSG IN PLACE CDI. IV SITE PT THE LFA REDDENED AND SWOLLEN. WILL REMOVED AND INSERT NEW IV. PT ON MAXIPIME. ALL COMFORT AND SAFETY MEASURES PROVIDED FOR, CALL LIGHT WITHIN REACH, BED IN LOWEST POSITION, WILL CONTINUE TO MONITOR.
[2019-03-28 21:53] VITALS: BP 124/91
--- NOTE | 2019-03-29 | NUR ---
PT RESTING IN BED W/ EYES CLOSED, NO ACUTE DISTRESS NOTED. PT IV SITE REMAINS PATENT, RFA 22 NS @ 70ML/HR. NO REDNESS, SWELLING OR PAIN NOTED. PT DENIES PAIN, ALL COMFORT AND SAFETY MEASURES PROVIDED FOR, CALL LIGHT WITHIN REACH, BED IN LOWEST POSITION, WILL CONTINUE TO MONITOR.
--- NOTE | 2019-03-29 05:15 | NUR ---
PT RESTED IN INTERVALS DURING SHIFT, NO ACUTE CHANGES OCCURRING OVERNIGHT. PT ABLE TO EMPTY HIS OWN COLOSTOMY BAG ON HIS OWN X1, SUPRAPUBIC CATH DRAINING YELLOW URINE, 250ML. PT REMAINS AEBRILE, IV SITE REMAINS PATENT TO THE RFA, NS @ 70ML/HR. NO REDNESS, SWELLING OR PAIN NOTED. ALL COMFORT AND SAFETY MEASURES PROVIDED FOR, CALL LIGHT WITHIN REACH, BED IN LOWEST POSITION, WILL CONTINUE TO MONITOR.
[2019-03-29 06:33] VITALS: BP 108/69
--- NOTE | 2019-03-29 08:00 | NUR ---
SHIFT ASSESSMENT DONE. PATIENT A/A/OX4; NO ACUTE DISTRESS. COLOSTOMY BAG TO LLQ ABD ABD SUPRAPUBIC CATH INTACT. PARAPLEGIC. ABLE TO TRANSFER TO W/C INDEPENDENTLY. IVF OF NS 70CC/HR TO R WRIST.SITE CLEAN. ULCER TO MAR BUTTOCK AREA WITH DRSG INTACT. DENIED PAIN. CALL LIGHT IN REACH.
[2019-03-29 09:39] VITALS: BP 118/74
--- NOTE | 2019-03-29 13:00 | NUR ---
WOUND CARE AND DRSG CHANGE GIVEN WITH BEVERLY WOUND CARE NURSE. SEE WOUND ASSESSMENT.
--- NOTE | 2019-03-29 13:42 | NUR ---
1. Recommend continuing CCHO diet with Zenon BID
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
[2019-03-29 13:49] VITALS: BP 125/73
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
[2019-03-29 18:02] VITALS: BP 114/72
--- NOTE | 2019-03-29 18:30 | NUR ---
CONDITION STABLE. NO ACUTE DISTRESS. COLOSTOMY BAG CHANGED X2 THIS SHIFT. UOP VIA SUPRAPUBIC CATH 1050 CC. IV TO R WRIST INTACT. ENDORSED CARE TO NOC NURSE.
--- NOTE | 2019-03-29 20:13 | NUR ---
Awake and verbally responsive. No respiratory distress noted on room air. Denies pain at this time. Denies n/v. Paraplegic. Dressing intact to left ischium and right hip open wound. Will cont.to monitor. Call light within reach.
[2019-03-29 21:26] VITALS: BP 124/72
--- NOTE | 2019-03-30 04:03 | NUR ---
Afebrile. No significant change in condition noted. Denies pain. Dressing change done to open wound on the right and left hip.Cont.on IV maxipime.
[2019-03-30 05:43] VITALS: BP 112/73
--- NOTE | 2019-03-30 07:30 | NUR ---
RECEIVED PT FROM TRAVELING SALES REPRESENTATIVE RN. Leon/NATALIE. MED SURG. DENIES CHEST PAIN/PRESSURE. RESPIRATIONS EQUAL AND UNLABORED ON RA. DENIES SOB. PT DENIES ANY PAIN AT THIS TIME. LLQ COLOSTOMY IN PLACE, SECURED. SUPRAPUBIC CATHETER IN PLACE, DRAINING YELLOW URINE. DRESSING TO LEFT ISCHIUM IN PLACE, CDI, NO DRAINAGE NOTED, LAST CHANGED TODAY 03/30. RLE CONTRACTURE NOTED, PT ABLE TO REPOSITION SELF IN BED. IV TO RW PATENT AND INFUSING. NO REDNESS OR SWELLING NOTED. WILL CONTINUE TO MONITOR. CALL LIGHT IN REACH. BED IN LOWEST POSITION.
[2019-03-30 08:46] VITALS: BP 110/72
--- NOTE | 2019-03-30 09:36 | NUR ---
PT SITTING IN BED. NO ACUTE DISTRESS NOTED. ADMIN AM MEDS. TOLERATED WELL. ALL NEEDS MET AT THIS TIME. WILL CONTINUE TO MONITOR. CALL LIGHT IN REACH. BED IN LOWEST POSITION.
--- NOTE | 2019-03-30 11:01 | NUR ---
PT SITTING UP IN BED. DRESSING CHANGED TO LEFT HIP, REMOVED DRESSING WITH PACKING NOTED LARGE AMOUNTS OF YELLOW DRAINAGE, NO ODOR NOTED. CLEANSED LEFT HIP OPEN WOUND WITH WOUND CLEANSER, PACKED WITH THERAHONEY DRESSING, APPLIED Z-GUARD TO ERYTHEMA AROUND WOUND, COVERED WITH ABD PAD AND ISLAND DRESSING. RIGHT HIP OPEN WOUND DRESSING CHANGED, NOTED MODERATE YELLOW DRAINAGE, NO ODOR NOTED. CLEANSED RIGHT OPEN WOUND WITH WOUND ROLL OPERATOR, PACKED WITH THERAHONEY DRESSING, APPLIED DRY GAUZE, COVERED WITH OPTIFOAM DRESSING (PER PT REQUEST). WILL CONTINUE TO MONITOR. CALL LIGHT IN REACH. BED IN LOWEST POSITION.
[2019-03-30 12:45] VITALS: BP 125/76
--- NOTE | 2019-03-30 16:25 | NUR ---
CALLED AND SPOKE TO KIM(N.P.) AND MADE HER AWARE THAT FAVIO LOPEZ NEED AN ORDER FOR D/C MRSA ISOLATION FOR PT. NEW ORDER RECEIVED, PLS SEE CPOE.
[2019-03-30 16:41] VITALS: BP 131/73
--- NOTE | 2019-03-30 16:58 | NUR ---
PT SITTING IN WHEELCHAIR. NO ACUTE DISTRESS AT THIS TIME. ADMIN MEDS PER EMAR. ALL NEEDS MET AT THIS TIME. WILL CONTINUE TO MONITOR. CALL LIGHT IN REACH.
--- NOTE | 2019-03-30 18:48 | NUR ---
PT SITTING IN WHEELCHAIR. NO ACUTE DISTRESS NOTED. BREATHING EVEN AND UNLABORED. PT DENIES ANY PAIN AT THIS TIME. ALL NEEDS MET AT THIS TIME. WILL ENDORESE TO 3D DESIGNER NURSE. CALL LIGHT IN REACH.
--- NOTE | 2019-03-30 19:15 | NUR ---
RECEIVED REPORT FROM DAY SHIFT NURSE, NEFTALI MONTALVO. PT IS AAOX4. SPEECH IS CLEAR. DENIES FAYE. M/S DENIES CHEST PAIN/CHEST PRESSURE. PULSES ARE PALPABLE. EDEMA NOTED TO BLE. BREATHING IS EVEN AND UNLABORED ON RA. LUNG SOUNDS CTA. DENIES SOB. ABD IS SOFT AND NONDISTENDED. BS ACTIVE. COLOSTOMY TO LLQ. DENIES N/V/D. SUPRAPUBIC CATHETER IN PLACE DRAINING YELLOW URINE. DENIES DYSURIA. PARAPLEGIC, RLE CONTRACTURE. WHEELCHAIR BASELINE. ABLE TO MOVE ON HIS OWN. WOUNDS NOTED TO L ISCHIUM AND R HIP, DRSGS CDI. DENIES PAIN AT THIS TIME. IV TO RW DRY, INTACT, PATENT. NO ERYTHEMA NOTED. PT AT BEDSIDE, EATING JELLO AT THIS TIME. CALL LIGHT WITHIN REACH. WILL CONTINUE TO MONITOR.
[2019-03-30 20:10] VITALS: BP 128/59
--- NOTE | 2019-03-30 21:10 | NUR ---
ROUTINE MEDICATIONS GIVEN AND TOLERATED WELL. NO ACUTE DISTRESS NOTED. BREATHING IS EVEN AND UNLABORED ON RA. NO SIGNS OF RESP. DISTRESS. DENIES PAIN AT THIS TIME. BED IN LOWEST POSITION. CALL LIGHT WITHIN REACH. WILL CONTINUE TO MONITOR.
--- NOTE | 2019-03-30 23:25 | NUR ---
PRESSURE ULCER TO L ISCHIUM AND R HIP DRSGS CHANGED. BREATHING IS EVEN AND UNLABORED ON RA. DENIES SOB. DENIES PAIN AT THIS TIME. BED IN LOWEST POSITION. CALL LIGHT WITHIN REACH. WILL CONTINUE TO MONITOR.
--- NOTE | 2019-03-31 01:28 | NUR ---
PT IS RESTING IN BED, ON PHONE. DENIES PAIN AT THIS TIME. DENIES SOB. BED IN LOWEST POSITION. CALL LIGHT WITHIN REACH. WILL CONTINUE TO MONITOR.
--- NOTE | 2019-03-31 03:36 | NUR ---
PT IS RESTING COMFORTABLY IN BED WITH EYES CLOSED, EASILY AROUSABLE WHEN SPOKEN TO. BREATHING IS EVEN AND UNLABORED ON RA. NO RESP DISTRESS NOTED. BED IN LOWEST POSITION. CALL LIGHT WITHIN REACH. WILL CONTINUE TO MONITOR.
[2019-03-31 05:30] VITALS: BP 99/64
--- NOTE | 2019-03-31 06:53 | NUR ---
PT SLEPT IN SHORT INTERVALS THROUGHOUT THE NIGHT AND COMPLIED WITH NURSING CARE WITH NO ACUTE EVENTS OCCURRING DURING THE SHIFT. COMFORT AND SAFETY MEASURES MAINTAINED. ALL NEEDS ASSESSED AND ATTENDED TO. WILL CONTINUE TO MONITOR AND ENDORSE CARE TO DAY SHIFT NURSE.
--- NOTE | 2019-03-31 07:10 | NUR ---
RECEIVED PT FROM TOBACCO CLASSER RN. Leon/NATALIE. MED SURG. DENIES CHEST PAIN/PRESSURE. RESPIRATIONS EQUAL AND UNLABORED ON RA. DENIES SOB. PT DENIES ANY PAIN AT THIS TIME. SUPRAPUBIC CATHETER IN PLACE, DRAINING YELLOW URINE. LLQ COLOSTOMY IN PLACE, SECURED. DRESSING TO LEFT ISCHIUM IN PLACE WITH MODERATE YELLOW DRAINAGE NOTED. RIGHT HIP DRESSING IN PLACE WITH NO DRAINAGE NOTED. PT STATES "I WILL LET YOU KNOW WHEN I AM READY TO HAVE MY DRESSING CHANGED ON MY LEFT HIP." IV TO RW SALINE LOCKED. NO REDNESS OR SWELLING NOTED. WILL CONTINUE TO MONITOR. CALL LIGHT IN PLACE. BED IN LOWEST POSITION.
[2019-03-31 07:52] VITALS: BP 120/81
--- NOTE | 2019-03-31 09:45 | NUR ---
PT SITTING IN BED. NO ACUTE DISTRESS NOTED. ADMIN AM MEDS. PT TOLERATED WELL. IV TO RIGHT WRIST INFUSING WELL, NO REDNESS OR SWELLING, DRESSING CDI. ALL NEEDS MET. WILL CONTINUE TO MONITOR. CALL LIGHT IN REACH. BED IN LOWEST POSITION.
[2019-03-31 12:19] VITALS: BP 121/81
--- NOTE | 2019-03-31 12:29 | NUR ---
PT SITTING IN WHEELCHAIR. NO ACUTE DISTRESS NEEDED. ADMIN NOON MEDS. ALL NEEDS MET AT THIS TIME. WILL CONTINUE TO MONITOR. CALL LIGHT IN REACH.
--- NOTE | 2019-03-31 16:10 | NUR ---
PT LAYING IN BED. DRESSING CHANGE DONE. REMOVED OLD DRESSING TO LEFT HIP, MODERATE AMOUNT OF YELLOW DRAINAGE PRESENT, NO ODOR NOTED. CLEANSED WOUND WITH WOUND CARE SOLUTION, PAT DRY, PACKED WITH THERAHONEY DRESSING, APPLIED Z-GUARD TO ANNELIESE-WOUND AREA. COVERED WITH DRY DRESSING. PT TOLERATED PROCEDURE WELL. ALL NEEDS MET AT THIS TIME. WILL CONTINUE TO MONITOR. CALL LIGHT IN REACH. BED IN LOWEST POSITION.
[2019-03-31 16:48] VITALS: BP 109/69
--- NOTE | 2019-03-31 17:43 | NUR ---
PT LAYING IN BED. NO ACUTE DISTRESS NOTED. ADMIN MEDS. PT TOLERATED WELL. ALL NEEDS MET AT THIS TIME. WILL CONTINUE TO MONITOR. CALL LIGHT IN REACH. BED IN LOWEST POSITION.
--- NOTE | 2019-03-31 18:41 | NUR ---
PT LAYING IN BED. NO ACUTE DISTRESS NOTED. ALL NEEDS MET AT THIS TIME. WILL ENDORSE TO SHIP UNLOADER NURSE. CALL LIGHT IN REACH. BED IN LOWEST POSITION.
--- NOTE | 2019-03-31 19:10 | NUR ---
RECEIEVED REPORT FROM DAY SHIFT NURSE, NEFTALI MONTALVO. PT IS AAOX4. SPEECH IS CLEAR. DENIES FAYE. M/S PT. DENIES CHEST PAIN/CHEST PRESSURE. PULSES PALPABLE. TRACE EDEMA NOTED TO BLE. BREATHING IS EVEN AND UNLABORED ON RA. LUNG SOUNDS CTA. DENIES SOB. ABD IS SOFT AND NONDISTENDED. BS ACTIVE. LLQ COLOSTOMY INTACT. SUPRAPUBIC CATHETER DRAINING TO GRAVITY YELLOW URINE. DENIES DYSURIA. PARAPLEGIC, RLE CONTRACTURE. WHEELCHAIR BASELINE. WOUNDS TO L ISCHIIUM AND R HIP, CDI. WILL PROVIDE WOUND CARE PRN. DENIES PAIN AT THIS TIME. IV TO RW SL, DRY, INTACT. NO ERYTHEMA NOTED. BED IN LOWEST POSITION. CALL LIGHT WITHIN REACH. WILL CONTINUE TO MONITOR.
[2019-03-31 20:16] VITALS: BP 110/70
--- NOTE | 2019-03-31 21:53 | NUR ---
DR MONTES IN TO SEE PT. ABX MAXIPIME D/C'D, PER DR MONTES RENEW FOR 1WK.
--- NOTE | 2019-03-31 22:05 | NUR ---
ROUTINE MEDICATIONS GIVEN AND TOLERATED WELL. NO ACUTE DISTRESS NOTED. BREATHING IS EVEN AND UNLABORED ON RA. DENIES SOB. DENIES PAIN AT THIS TIME. PT STATED HE IS GOING TO SHOWER AND AFTERWARDS HE WANTS HIS DRSG CHANGED. ASKED PT IF HE NEEDED ASSISTANCE, HE STATED HE IS OKAY. ENCOURAGED PT TO USE CALL LIGHT IF IN NEED OF ASSISTANCE.
--- NOTE | 2019-04-01 00:03 | NUR ---
PT RETURNED FROM SHOWER, BREATHING IS EVEN AND UNLABORED ON RA. DENIES SOB. DENIES PAIN. WILL CHANGE DRSGS AT THIS TIME.
--- NOTE | 2019-04-01 00:45 | NUR ---
DRSGS TO L ISCHIUM AND R HIP CHANGED. NO ACUTE DISTRESS NOTED. BREATHING IS EVEN AND UNLABORED ON RA. DENIES SOB. DENIES PAIN. BED IN LOWEST POSITION. CALL LIGHT WITHIN REACH. WILL CONTINUE TO MONITOR.
--- NOTE | 2019-04-01 02:32 | NUR ---
PT RESTING COMFORTABLY IN BED WITH EYES CLOSED, EASILY AROUSABLE WHEN SPOKEN. BREATHING IS EVEN AND UNLABORED ON RA. NO RESP DISTRESS NOTED. BED IN LOWEST POSITION. CALL LIGHT WITHIN REACH. WILL CONTINUE TO MONITOR.
--- NOTE | 2019-04-01 04:38 | NUR ---
PT ASLEEP, BREATHING IS EVEN AND UNLABORED ON RA. NO RESP DISTRESS NOTED. BED IN LOWEST POSITION. CALL LIGHT WITHIN REACH. WILL CONTINUE TO MONITOR.
[2019-04-01 06:08] VITALS: BP 105/72
--- NOTE | 2019-04-01 07:10 | NUR ---
RECIEVED PT RESTING IN BED WITH NO C/O PAIN OR DISTRESS. LUNGS CTAB. LLQ COLOSTOMY IN PLACE AND DRAINING, PT DOES SELF CARE OF COLOSTOMY. SUPRAPUBIC CATHETER IN PLACE AND DRAINING YELLOW URINE, PT DOES SELF CARE OF SUPRAPUBIC. PT PARAPLEGIC AND WC IS AT BEDSIDE, PT ABLE TO TRANSFER TO AND FROM BED AND WC ON OWN. SKIN WOUND DRESSINGS CDI. IV TO RIGHT WRIST CDI AND PATENT. SAFETY PRECAUTIONS IN PLACE, CALL LIGHT WITHIN REACH, WILL MONITOR.
[2019-04-01 08:25] VITALS: BP 110/71
[2019-04-01 12:40] VITALS: BP 99/53
[2019-04-01 17:41] VITALS: BP 113/79
--- NOTE | 2019-04-01 18:51 | NUR ---
PT RESTING IN BED WITH NO C/O PAIN OR DISTRESS. LUNGS CTAB. LLQ COLOSTOMY IN PLACE AND DRAINING, PT DOES SELF CARE OF COLOSTOMY. SUPRAPUBIC CATHETER IN PLACE AND DRAINING YELLOW URINE, PT DOES SELF CARE OF SUPRAPUBIC. PT PARAPLEGIC AND WC IS AT BEDSIDE, PT ABLE TO TRANSFER TO AND FROM BED AND WC ON OWN. SKIN WOUND DRESSINGS CDI. IV TO RIGHT WRIST CDI AND PATENT. SAFETY PRECAUTIONS IN PLACE, CALL LIGHT WITHIN REACH, FAMILY AT BEDSIDE, WILL ENDORSE CARE TO NIGHT NURSE.
--- NOTE | 2019-04-01 19:30 | NUR ---
Pt. received from day shift, currently resting in wheelchair and talking on the phone. Pt. is a/o x4, able to make needs known, able to follow commands, no c/o h/a. Pt. is a paraplegic, but uses hands for majority for his movements and transferring to and from his wheelchair to the bed. Pt. IV site patent and dressing in tact on Right Wrist. Otherwise, pt. stable, breathing even and unlabored, no s/o distress or SOB on RA. Pt. safety in check, w/ call light placed within reach, pt. educated on when and how to use call light system, will continue to monitor.
[2019-04-01 21:09] VITALS: BP 124/79
[2019-04-02 06:05] VITALS: BP 113/70
--- NOTE | 2019-04-02 06:17 | NUR ---
Pt. asleep throughout most of the night, educated pt. on why it's preferable to KVO the IV line to help prevent the blood clotting at the end of the catheter that can cause a "popping" noise when flushing. pt. verbalize understanding. Otherwise, pt. stable, no c/o of pain, or s/o distress or discomfort. Will continue to monitor pt. and endorse to next shift RN.
--- NOTE | 2019-04-02 07:10 | NUR ---
RECIEVED PT RESTING IN BED WITH NO C/O PAIN OR DISTRESS. LUNGS CTAB. LLQ COLOSTOMY IN PLACE AND DRAINING, PT DOES SELF CARE TO COLOSTOMY. SUPRAPUBIC CATHETER IN PLACE AND DRAINING YELLOW URINE, PT DOES SELF CARE TO SUPRAPUBIC. PT PARAPLEGIC AND WC IS AT BEDSIDE, PT ABLE TO TRANSFER TO AND FROM BED AND WC ON OWN. SKIN WOUND DRESSINGS CDI, LIANNA DO WOUND CARE TODAY. IV TO RIGHT WRIST CDI AND PATENT. SAFETY PRECAUTIONS IN PLACE, CALL LIGHT WITHIN REACH, WILL CONTINUE TO MONITOR.
[2019-04-02 08:13] VITALS: BP 100/73
--- NOTE | 2019-04-02 11:50 | NUR ---
PT STABLE WITH NO C/O PAIN OR DISTRESS. SAFETY PRECAUTIONS IN PLACE, CALL LIGHT WITHIN REACH, WILL CONTINUE TO MONITOR.
[2019-04-02 12:39] VITALS: BP 127/75
--- NOTE | 2019-04-02 15:38 | NUR ---
WOUND CARE AND CHANGE DONE, PT TOLERATED WELL. DRESSING CDI. OLD IV IN RW REMOVED WITH CATHETER INTACT AND NEW IV STARTED IN LFA 22 G. IV CDI AND PATENT.
[2019-04-02 16:23] VITALS: BP 123/81
--- NOTE | 2019-04-02 18:32 | NUR ---
PT RESTING IN BED WITH NO C/O PAIN OR DISTRESS.VS WNL. LLQ COLOSTOMY IN PLACE AND DRAINING, PT DOES SELF CARE OF COLOSTOMY. SUPRAPUBIC CATHETER IN PLACE AND DRAINING YELLOW URINE, PT DOES SELF CARE OF SUPRAPUBIC. PT PARAPLEGIC AND WC IS AT BEDSIDE, PT ABLE TO TRANSFER TO AND FROM BED AND WC ON OWN. WOUND CARE DONE TODAY, CDI. IV TO RIGHT WRIST CDI AND PATENT. SAFETY PRECAUTIONS IN PLACE, CALL LIGHT WITHIN REACH, FAMILY AT BEDSIDE, WILL ENDORSE CARE TO NIGHT NURSE.
--- NOTE | 2019-04-02 19:59 | NUR ---
RECEIVED PATIENT IN BED AWAKE, ALERT AND ORIENTED WITH NO C/O PAIN AND DISCOMFORT AT THIS TIME. ABDOMEN SOFT AND NONTENDER WITH COLOSTOMY BAG CDI. SUPRAPUBIC CATH WITH SMALL AMOUNT OF URINE IN PLACE. IV TO LFA TKO INTACT AND INFUSING WELL. WILL CONTINUE TO MONITOR. CALL LIGHT WITHIN REACH.
[2019-04-02 21:14] VITALS: BP 118/82
--- NOTE | 2019-04-03 00:25 | NUR ---
APPEAR TO BE SLEEPING THIS TIME BREATHING EASY AND NONABOR. WILL CONTINUE TO MONITOR.
--- NOTE | 2019-04-03 05:02 | NUR ---
NO SIGNIFICANT CHANGES IN CONDITION NOTED, SLEPT AT LONG INTERVALS.
[2019-04-03 05:10] VITALS: BP 106/55
--- NOTE | 2019-04-03 07:20 | NUR ---
PATIENT IN BED, SLEEPING. EASILY AROUSABLE. NO ACUTE RESP DISTRESS NOTED. NO COMPLAINTS OF PAIN AT THIS TIME. IV INTACT AND PATENT. SAFETY PRECAUTION IN PLACE. CALL LIGHT WITHIN REACH. WILL CONTINUE TO MONITOR.
[2019-04-03 08:54] VITALS: BP 99/66
--- NOTE | 2019-04-03 09:35 | NUR ---
PT IN BED, STABLE. NO ACUTE RESP DISTRESS NOTED. NO COMPLAINTS OF PAIN AT THIS TIME. IV INTACT AND PATENT, NO ERYTHEMA/SWELLING NOTED. SAFETY PRECAUTION IN PLACE. CALL LIGHT WITHIN REACH. WILL CONTINUE TO MONITOR.
--- NOTE | 2019-04-03 11:15 | NUR ---
WOUND CARE PROVIDED ORDERED DAILY. BOTH SITES CLEANSED WITH WOUND CLEANSER, PAT DRY, PACKED WITH THERAHONEY DRESSING, ZGUARD APPLIED PERIWOUND, AND COVERED WITH DRY DRESSING. ABDOMINAL PAD USED TO BOTH SIDES CUSHION REQUESTED BY PATIENT. DRESSINGS, C/D/I. TOLERATED WELL. WILL CONTINUE TO MONITOR.
[2019-04-03 12:42] VITALS: BP 115/64
--- NOTE | 2019-04-03 12:43 | NUR ---
PATIENT IN PERSONAL WHEELCHAIR, EATING LUNCH. NO ACUTE RESP DISTRESS NOTED. ASSISTED PT WITH TRAY SET UP. NO COMPLAINTS OF PAIN AT THIS TIME. IV INTACT AND PATENT. NO ERYTHEMA/SWELLING NOTED. SAFETY PRECAUTION IN PLACE. CALL LIGHT WITHIN REACH. WILL CONTINUE TO MONITOR.
--- NOTE | 2019-04-03 15:35 | NUR ---
PT IN BED, SLEEPING IN LATERAL POSITION. EASILY AROUSABLE. REMAINS ON ROOM AIR. NO ACUTE RESP DISTRESS NOTED. NO COMPLAINTS OF PAIN AT THIS TIME. IV INTACT AND PATENT. NO ERYTHEMA/REDNESS NOTED. DRESSINGS TO BOTH SITES, C/D/I. SAFETY PRECAUTION IN PLACE. CALL LIGHT WITHIN REACH. WILL CONTINUE TO MONITOR.
[2019-04-03 17:38] VITALS: BP 104/64
--- NOTE | 2019-04-03 18:30 | NUR ---
PT IN BED, WATCHING TV. NO ACUTE RESP DISTRESS NOTED. REMAINS ON ROOM AIR. NO COMPLAINTS OF PAIN AT THIS TIME. DRESSING TO BOTH SITES, C/D/I. IV INTACT AND PATENT, NO ERYTHEMA/SWELLING NOTED. SAFETY PRECAUTION IN PLACE. CALL LIGHT WITHIN REACH. ALL NEEDS MET. WILL ENDORSE CARE TO WAFER CUTTER NURSE.
--- NOTE | 2019-04-03 19:47 | NUR ---
RECEIVED PATIENT SLEEPING EASILY AROUSABLE WITH NO C/O PAIN AND DISCOMFORT AT THIS TIME. WOUND DRESSING NEWLY CHANGED BYM SHIFT. BREATHING EASY AND NONLABOR SATTING AT 98% RA. IV TO LFA HEPLOCK, FLUSHED WITH NS. COLOSTOMY BAG INTACT WITH SMALL AMOUNT OF STOOL NOTED . NEPROSTOMY BAG INTACT WITH YELLOW URINE OUTPUT NOTED. WILL CONTINUE TO MONITOR. CALL LIGHT WITHIN REACH.
[2019-04-03 21:02] VITALS: BP 105/68
--- NOTE | 2019-04-03 23:05 | NUR ---
STILL AWAKE RESTING IN A POSITION OF COMFORT WATCHING TELEVISION.
--- NOTE | 2019-04-04 05:07 | NUR ---
NO SIGNIFICANT CHANGES IN PATIENT CONDITION NOTED. PHOTO OF ULCERS TO BUTTOCKS TAKEN AND DRESSING CHANGED. ALL NEEDS ATTENDED.
[2019-04-04 05:39] VITALS: BP 100/61
--- NOTE | 2019-04-04 07:00 | NUR ---
RECEIVED REPORT FROM JACKIE MONTALVO AT BEDSIDE, PT IN BED RESTING IN NO ACUTE DISTRESS
--- NOTE | 2019-04-04 07:50 | NUR ---
PT RESTING IN BED, IN NO ACUTE DISTRESS, VERBAL, ABLE TO MAKE NEEDS KNOWN, AXOX4, RESP E/U, RA, LUNG CTA, MEDSURG, DENIED PAIN/DISCOMFORT, DENIED FAYE/N/V, IV PATENT, DRESSING CDI, SEE SKIN ASSESSMENT, SEE SHIFT ASSESSMENT, ALL NEEDS ADDRESSED, SAFETY PROTOCOL MAINTAINED, CONTINUE TO MONITOR
[2019-04-04 09:05] VITALS: BP 125/81
--- NOTE | 2019-04-04 09:37 | NUR ---
AM MED GIVEN PER MD ORDER VIA EMAR, TOLERATED WELL, NO ASE NOTED AT THIS TIME, EDUCATED PT R/T MED, ASE AND MONITOR, VERBALLY UNDERSTANDING, NO FURTHER CONCERN NEEDED WHEN ASKED AT THIS TIME, COMFORT MEASURE PROVIDED, SAFETY PROTOCOL FOLLOWED, CONTINUE TO MONITOR
--- NOTE | 2019-04-04 11:31 | NUR ---
1. Recommend continuing CCHO diet with Zenon BID.
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
[2019-04-04 13:41] VITALS: BP 117/73
--- NOTE | 2019-04-04 13:56 | NUR ---
PT RESTING IN BED, IN NO ACUTE DISTRESS, DENIED PAIN/DISCOMFORT, IV PATENT AND FLUSHING WELL, ALL NEEDS ADDRESSED, SAFETY PROTOCOL MAINTAINED, CONTINUE TO MONITOR
--- NOTE | 2019-04-04 16:11 | NUR ---
PT REFUSED WOUND CARE DONE SEVERAL TIMES, DESPITE ENCOURAGEMENT, PT SAID DRESSING STILL CLEAN AND INTACT, SAID WILL HAVE TX DONE BEFORE BEDTIME OR TOMORROW, PT REQUEST PBJ SANDWICH, REQUEST SEND TO IT INFRASTRUCTURE MANAGER, PT MADE AWARE, CHARGE NURSE MADE AWARE OF PT REFUSAL WOUND TX, PT RESTIN IN BED, WATCHING TV, CONTINUE TO MONITOR
--- NOTE | 2019-04-04 16:50 | NUR ---
LISSY ORELLANA DISCUSSED W/ PT R/T DC TO [facility] AT 1830 TODAY, PT AGREED AND REQUESTED HAVING SHWER AND WOUND CARE DONE PRIOR DC, PT REQUEST RESPECTED, CHARGE NURSE MARIANNA MADE AWARE, CONTINUE TO MONITOR
[2019-04-04 16:55] VITALS: BP 117/73
[2019-04-04 17:02] VITALS: BP 112/75
--- NOTE | 2019-04-04 17:44 | NUR ---
PT REFUSED WOUND PIC TAKEN AT IN, SAID NIGHTSHIFT RN TOOK IT THIS MORNING, WOUND CARE DONE, CHARGE NURSE MARIANNA MADE AWARE, REPORT GIVEN TO SHAKEEL MONTALVO AT [facility] AT [address], [place], [place] AT [phone], PT WILL BE ADMITED TO ROOM 309A FOR TX, P/U BY [facility] AT 1815, DOCTOR SIAL WILL F/U CARE FOR PT AT THIS FACILITY, PT TOLERATED DINNER WELL, V/S STABLE, IN NO ACUTE DISTRESS, BELONGING PACKED AND KEPT W/ PT, PT ON PERSONAL WC, ALL NEEDS ADDRESSED, PT WILL BE ACCOMPANIED MY principal quality engineer
== END 2019-04-04 18:31 | DRG 466 ==
LOC: ED 01:49 → MU 04:13 → DU 04:13 → MU 03-18 14:05
PROVIDERS: Emergency Medicine; Student in an Organized Health Care Education/Training Program; ADMIT Internal Medicine
DX: T83.511A Infection and inflammatory reaction due to indwelling urethral catheter, initial encounter (principal); E43 Unspecified severe protein-calorie malnutrition; L89.894 Pressure ulcer of other site, stage 4; G82.21 Paraplegia, complete; E83.51 Hypocalcemia; D50.9 Iron deficiency anemia, unspecified; E11.9 Type 2 diabetes mellitus without complications; F12.10 Cannabis abuse, uncomplicated; N39.0 Urinary tract infection, site not specified; F14.10 Cocaine abuse, uncomplicated; F15.10 Other stimulant abuse, uncomplicated; S22.07 Fracture of T9-T10 vertebra; Z93.3 Colostomy status; Z99.3 Dependence on wheelchair; Z68.20 Body mass index [BMI] 20.0-20.9, adult; X95.9XXS Assault by unspecified firearm discharge, sequela; F17.290 Nicotine dependence, other tobacco product, uncomplicated; D64.9 Anemia, unspecified; Y83.8 Other surgical procedures as the cause of abnormal reaction of the patient, or of later complication, without mention of misadventure at the time of the procedure; Y92.89 Other specified places as the place of occurrence of the external cause
CPT/HCPCS: 97116-GP; G0378; J0692; J0696; J2543; J3370; J7030; J7040; J7050; J7060; Q0092